=== PATIENT | female | born 1960 | race Caucasian/White ===

== ENCOUNTER 2019-01-14 10:48 | Inpatient (IN) | payer MEDICAID ==
[2019-01-14] MEDS ORDERED: Albuterol-Ipratrop 3 mg / 0.5 (3 ml) UD IH STA ×2 (11:04)
--- NOTE | 2019-01-14 11:11 | ED PDOC ---
HPI: Headache Time Seen by Provider: 01/14/19 10:55 Chief Complaint (Nursing): Headache Chief Complaint (Provider): Headache History Per: Patient History/Exam Limitations: no limitations Preceeding Symptoms: denies: Visual Disturbances, Known Migraine Symptoms Associated Symptoms: denies: Photophobia, Blurred Vision, Nausea, Vomiting, Extremity Weakness Additional Complaint(s): 58yo female with history of asthma, diabetes, hypertension, CAD, rheumatoid arthritis, comes to ER reporting head injury after she tripped and fell, hitting the back of her head. She denies any loss of consciousness, vomiting, or focal weaknesses; she does report some diffuse headache. Patient has a secondary complaints of cough with white sputum, shortness of breath and wheezing since last night. Patient reports no improvement in her symptoms with inhaler or nebulizer. Also denies any fever, chills, or chest pain. No additional complaints. PMD: Kyra Palafox Past Medical History Reviewed: Historical Data, Nursing Documentation, Vital Signs Vital Signs: Last Vital Signs Temp 98.2 F 01/14/19 11:00 Pulse 108 H 01/14/19 11:00 Resp 16 01/14/19 11:00 BP 143/80 01/14/19 11:00 Pulse Ox 95 01/14/19 11:00 - Medical History PMH: Arthritis, Asthma, CAD, Diabetes, HTN - Surgical History Surgical History: No Surg Hx - Family History Family History: States: No Known Family Hx - Allergies Allergies/Adverse Reactions: Allergies Allergy/AdvReac Type Severity Reaction Status Date / Time No Known Allergies Allergy Verified 01/14/19 11:03 Review of Systems ROS Statement: Except As Marked, All Systems Reviewed And Found Negative Constitutional: Negative for: Fever, Chills Cardiovascular: Negative for: Chest Pain Respiratory: Positive for: Cough, Shortness of Breath, Sputum (white), Wheezing Gastrointestinal: Negative for: Nausea, Vomiting Neurological: Positive for: Headache. Negative for: Weakness, Numbness, Dizziness Physical Exam - Reviewed Nursing Documentation Reviewed: Yes Vital Signs Reviewed: Yes - Physical Exam Appears: Positive for: Non-toxic, No Acute Distress Head Exam: Positive for: ATRAUMATIC, NORMAL INSPECTION, NORMOCEPHALIC Skin: Positive for: Normal Color Eye Exam: Positive for: Normal appearance, EOMI, PERRL ENT: Negative for: Pharyngeal Erythema Neck: Positive for: Normal, Supple Cardiovascular/Chest: Positive for: Regular Rate, Rhythm. Negative for: Tachycardia Respiratory: Positive for: Rhonchi, Wheezing (expiratory), Respiratory Distress (mild) Gastrointestinal/Abdominal: Positive for: Normal Exam, Soft Back: Positive for: Normal Inspection Extremity: Positive for: Normal ROM. Negative for: Pedal Edema Neurological/Psych: Positive for: Awake, Alert, Oriented (x 3). Negative for: Motor/Sensory Deficits - Laboratory Results Result Diagrams: 01/14/19 11:49 01/14/19 11:49 - ECG O2 Sat by Pulse Oximetry: 95 (RA) Pulse Ox Interpretation: Normal Medical Decision Making Medical Decision Makinyo with head injury, asthma exacerbation Plan: -- CT head -- CXR -- Solumedrol 125mg IVP -- Duoneb 3ml INH x2 Scribe Attestation: Documented by Breonna Roth acting as a scribe for Kale Wagner MD Provider Scribe Attestation: All medical record entries made by the Scribe were at my direction and personall y dictated by me. I have reviewed the chart and agree that the record accurately reflects my personal performance of the history, physical exam, medical decision making, and the department course for this patient. I have also personally directed, reviewed, and agree with the discharge instructions and disposition. Disposition - Clinical Impression Clinical Impression: CHF (congestive heart failure), Asthma - Patient ED Disposition Is Patient to be Admitted: Yes - Disposition Disposition Time: 12:32 Condition: FAIR Forms: ActiveO ([place]) - Pt Status Changed To: Hospital Disposition Of: Observation - POA Present On Arrival: None
[2019-01-14] MEDS ORDERED: Albuterol-Ipratrop 3 mg / 0.5 (3 ml) UD ONE (11:55)
[2019-01-14 12:04] LABS: BASO # 0.1 K/uL (0.0-0.2); EOS # 0.2 K/uL (0.0-0.7); EOS % 1.9 % (0.0-4.0); LYMPH # 1.6 K/uL (1.0-4.3); LYMPH % 19.7 % (20.0-40.0); MEAN CELL VOLUME 90.6 fl (81.0-99.0); MEAN CORPUSCULAR HEMOGLOBIN 29.4 pg (27.0-31.0); MEAN CORPUSCULAR HGB CONC 32.4 g/dL (33.0-37.0); MEAN PLATELET VOLUME 8.4 fl (7.2-11.7); MONO # 0.8 K/uL (0.0-0.8); MONO % 9.6 % (0.0-10.0); NEUT # 5.6 K/uL (1.8-7.0); NEUT % 67.8 % (50.0-75.0); NRBC % 0.1 % (0.0-0.0); RBC 4.09 Mil/uL (3.80-5.20); RED CELL DISTRIBUTION WIDTH 16.5 % (11.5-14.5); WHITE BLOOD COUNT 8.3 K/uL (4.8-10.8)
[2019-01-14 12:15] LABS: ALB/GLOB RATIO 1.6 (1.0-2.1); ALBUMIN 4.6 g/dL (3.5-5.0); ALT/SGPT 80 U/L (9-52); AST/SGOT 58 U/L (14-36); BLOOD UREA NITROGEN 12 mg/dl (7-17); CALCIUM 9.6 mg/dL (8.4-10.2); GFR NON-AFRICAN AMERICAN > 60
--- NOTE | 2019-01-14 12:23 | RAD ---
Date of service: 01/14/2019 HISTORY: Shortness of breath COMPARISON: No prior. TECHNIQUE: Chest PA and lateral FINDINGS: LINES AND TUBES: None. LUNG AND PLEURA: There are low lung volumes. There is severe pulmonary venous congestion and presumable alveolar pulmonary edema in the lungs. Suspect small effusions. No pneumothorax. HEART AND MEDIASTINUM: Mild cardiomegaly and prominent central vasculature. No aortic atherosclerotic calcifications present. The hilar and mediastinal contours are within normal limits. SKELETAL STRUCTURES: The bony structures are within normal limits for the patient's age. VISUALIZED UPPER ABDOMEN: Normal. OTHER FINDINGS: None. IMPRESSION: Findings are most compatible with congestive heart failure with presumable developing pulmonary edema.
--- NOTE | 2019-01-14 12:36 | CT ---
Date of service: 01/14/2019 PROCEDURE: CT HEAD WITHOUT CONTRAST. HISTORY: r/o bleed COMPARISON: None available. TECHNIQUE: Axial computed tomography images were obtained through the head/brain without intravenous contrast. Radiation dose: Total exam DLP = 840.4 mGy-cm. This CT exam was performed using one or more of the following dose reduction techniques: Automated exposure control, adjustment of the mA and/or kV according to patient size, and/or use of iterative reconstruction technique. FINDINGS: HEMORRHAGE: No intracranial hemorrhage. BRAIN: Womack-white matter differentiation is preserved. There is no mass, mass effect or abnormal extra-axial fluid collection. There is no territorial infarction. The midline sagittal structures are normal. VENTRICLES: The ventricles are normal in size, shape and configuration. CALVARIUM: There is no calvarial fracture. There is a moderate size right parietal scalp hematoma. PARANASAL SINUSES: Predominantly clear. MASTOID AIR CELLS: Predominantly clear. OTHER FINDINGS: None. IMPRESSION: No acute intracranial abnormality. Moderate size right parietal scalp hematoma.
--- NOTE | 2019-01-14 15:32 | CARD ---
APPROVED REPORT Date of service: 01/14/2019 EKG Measurement Heart [id number] <Conclusion> Normal sinus rhythm Non specific T-wave changes Prolonged QT Abnormal ECG
--- NOTE | 2019-01-14 16:51 | CP.PCM.CON ---
Past Patient History - Past Medical History & Family History Past Medical History?: Yes - Past Social History Smoking Status: Never Smoked - CARDIAC Hx Cardiac Disorders: Yes Hx Hypertension: Yes - PULMONARY Hx Respiratory Disorders: Yes Hx Asthma: Yes - NEUROLOGICAL Hx Neurological Disorder: No - HEENT Hx HEENT Problems: No - RENAL Hx Chronic Kidney Disease: No - ENDOCRINE/METABOLIC Hx Endocrine Disorders: Yes Hx Diabetes Mellitus Type 2: Yes - HEMATOLOGICAL/ONCOLOGICAL Hx Blood Disorders: No - INTEGUMENTARY Hx Dermatological Problems: No - MUSCULOSKELETAL/RHEUMATOLOGICAL Hx Musculoskeletal Disorders: Yes Hx Arthritis: Yes Hx Back Pain: Yes Hx Falls: Yes - GASTROINTESTINAL Hx Gastrointestinal Disorders: No - GENITOURINARY/GYNECOLOGICAL Hx Genitourinary Disorders: No - PSYCHIATRIC Hx Psychophysiologic Disorder: No Hx Substance Use: No - SURGICAL HISTORY Hx Surgeries: Yes Other/Comment: Two hip surgeries, 3 c-sections, spine surgery in lumbar - ANESTHESIA Hx Anesthesia: No Hx Anesthesia Reactions: No Meds Allergies/Adverse Reactions: Allergies Allergy/AdvReac Type Severity Reaction Status Date / Time No Known Allergies Allergy Verified 01/14/19 11:03 - Medications Medications: Current Medications Acetaminophen (Tylenol 325mg Tab) 650 mg PO Q6 PRN PRN Reason: Headache Albuterol/Ipratropium (Duoneb 3 Mg/0.5 Mg (3 Ml) Ud) 3 ml INH RQID [facility] Aspirin (Ecotrin) 81 mg PO DAILY [facility] Atorvastatin Calcium (Lipitor) 20 mg PO HS [facility] Fluticasone Propionate (Flonase) 2 spr BRIDGETT HS [facility] Folic Acid (Folic Acid) 1 mg PO DAILY [facility] Furosemide (Lasix) 40 mg IV DAILY [facility] Furosemide (Lasix) 40 mg IVP ONCE ONE Stop: 01/14/19 16:47 Gabapentin (Neurontin) 300 mg PO Q8 [facility] Insulin Detemir (Levemir) 45 units SC HS [facility] Losartan Potassium (Cozaar) 100 mg PO DAILY [facility] Methylprednisolone (Solu-Medrol) 40 mg IVP Q12 [facility] Montelukast Sodium (Singulair) 10 mg PO HS [facility] Pantoprazole Sodium (Protonix Ec Tab) 40 mg PO DAILY [facility] Results - Vital Signs Recent Vital Signs: Last Vital Signs Temp 98.1 F 01/14/19 14:23 Pulse 100 H 01/14/19 14:23 Resp 18 01/14/19 16:03 BP 117/66 01/14/19 14:23 Pulse Ox 95 01/14/19 16:03 - Labs Result Diagrams: 01/14/19 11:49 01/14/19 11:49 Labs: Laboratory Results - last 24 hr 01/14/19 01/14/19 01/14/19 11:49 11:49 12:46 WBC 8.3 RBC 4.09 Hgb 12.0 Hct 37.0 MCV 90.6 MCH 29.4 MCHC 32.4 L RDW 16.5 H Plt Count 236 MPV 8.4 Neut % (Auto) 67.8 Lymph % (Auto) 19.7 L [place] % (Auto) 9.6 Eos % (Auto) 1.9 Baso % (Auto) 1.0 Neut # (Auto) 5.6 Lymph # (Auto) 1.6 [place] # (Auto) 0.8 Eos # (Auto) 0.2 Baso # (Auto) 0.1 Sodium 139 Potassium 4.4 Chloride 106 Carbon Dioxide 23 Anion Gap 14 BUN 12 Creatinine 0.7 Est GFR ( Amer) > 60 Est GFR (Non-Af Amer) > 60 Random Glucose 104 Calcium 9.6 Total Bilirubin 0.4 AST 58 H ALT 80 H Alkaline Phosphatase 82 NT-Pro-B Natriuret Pep 568 Total Protein 7.4 Albumin 4.6 Globulin 2.8 Albumin/Globulin Ratio 1.6
[2019-01-14] MEDS ORDERED: Influenza Vaccine 60 mcg/0.5 mL SYR (4YR UP) IM ONE (17:15)
[2019-01-14] MEDS ORDERED: Pneumococcal 23-Valent Vaccine IM ONE (17:15)
[2019-01-14] MEDS: Albuterol-Ipratrop 3 mg / 0.5 (3 ml) UD INH SCH ×2 (17:26→19:10)
[2019-01-14] MEDS: MethylPREDNISolone 40 mg Vial IVP SCH (21:29)
[2019-01-14] MEDS: Insulin Detemir 100 Units/ml Inj SC SCH (21:30)
[2019-01-14] MEDS: Insulin Regular 100 units/ml SC SCH (22:44)
[2019-01-15 05:39] LABS: BLOOD UREA NITROGEN 15 mg/dl (7-17); CALCIUM 9.9 mg/dL (8.4-10.2); GFR NON-AFRICAN AMERICAN > 60
[2019-01-15] MEDS: Albuterol-Ipratrop 3 mg / 0.5 (3 ml) UD INH SCH ×4 (07:55→19:21)
[2019-01-15] MEDS: Insulin Regular 100 units/ml SC SCH ×4 (08:16→22:02)
[2019-01-15] MEDS: MethylPREDNISolone 40 mg Vial IVP SCH ×2 (08:16→21:59)
[2019-01-15] MEDS: Pantoprazole 40 mg EC Tab PO SCH (08:16)
[2019-01-15 09:39] LABS: ALB/GLOB RATIO 1.6 (1.0-2.1); ALBUMIN 4.7 g/dL (3.5-5.0); BILIRUBIN,DIRECT 0.3 mg/ml (0.0-0.4)
[2019-01-15] MEDS: guaiFENesin DM 200 mg-20 mg/10 ml UD PO SCH ×3 (11:14→21:57)
--- NOTE | 2019-01-15 12:58 | CARD ---
APPROVED REPORT Date of service: 01/15/2019 EXAM: Two-dimensional and M-mode echocardiogram with Doppler and color Doppler. Other Information Quality : GoodRhythm : NSR INDICATION Congestive Heart Failure 2D DIMENSIONS IVSd1.04 (0.7-1.1cm)LVDd5.54 (3.9-5.9cm) LVOT Diameter1.92 (1.8-2.4cm)PWd0.93 (0.7-1.1cm) IVSs0.91 (0.8-1.2cm)LVDs4.42 (2.5-4.0cm) FS (%) 20.3 %PWs1.39 (0.8-1.2cm) M-Mode DIMENSIONS Left Atrium (MM)4.41 (2.5-4.0cm)IVSd1.12 (0.7-1.1cm) Aortic Root2.56 (2.2-3.7cm)LVDd5.53 (4.0-5.6cm) Aortic Cusp Exc.1.59 (1.5-2.0cm)PWd0.91 (0.7-1.1cm) IVSs1.29 cmFS (%) 26 % LVDs4.09 (2.0-3.8cm)PWs1.38 cm Aortic Valve AoV Peak Ckyjzjnq640.8cm/sAoV VTI31.4cmAO Peak GR.8mmHg LVOT Peak Qvlstyeg973.1cm/sLVOT VTI23.61cmAO Mean GR.5mmHg RANDY (VMAX)1.58cj1GCH (VTI)1.23cm2 Mitral Valve E/A ratio0.0 TDI E/Lateral E'0.0E/Medial E'0.0 Tricuspid Valve TR Peak Ucmkwosr860bn/sRAP [id number] Peak Gr.42mmHg [id number] LEFT VENTRICLE The left ventricle is normal size. There is normal left ventricular wall thickness. The systolic function is mildly to moderately impaired. The estimated ejection fraction is 40-45% There is mild global hypokinesis of the left ventricle. Transmitral Doppler flow pattern is Grade II-pseudonormal filling dynamics. No left ventricle thrombus noted on this study. There is no ventricular septal defect visualized. There is no left ventricular aneurysm. There is no mass noted in the left ventricle. RIGHT VENTRICLE The right ventricle is normal size. There is normal right ventricular wall thickness. The right ventricular systolic function is normal. ATRIA The left atrium is moderately dilated. The right atrium size is normal. The interatrial septum is intact with no evidence for an atrial septal defect. AORTIC VALVE The aortic valve is normal in structure. No aortic regurgitation is present. There is no aortic valvular stenosis. There is no aortic valvular vegetation. MITRAL VALVE The mitral valve is normal in structure. There is no evidence of mitral valve prolapse. There is no mitral valve stenosis. There is mild mitral valve regurgitation noted. TRICUSPID VALVE The tricuspid valve is normal in structure. There is mild tricuspid valve regurgitation noted. RVSP is calculated at 46 mm Hg. There is no tricuspid valve prolapse or vegetation. There is no tricuspid valve stenosis. PULMONIC VALVE The pulmonary valve is normal in structure. There is mild pulmonic valvular regurgitation. There is no pulmonic valvular stenosis. GREAT VESSELS The aortic root is normal in size. The ascending aorta is normal in size. The pulmonary artery is normal. The IVC is not visualized. PERICARDIAL EFFUSION There is no pericardial effusion. There is no pleural effusion. <Conclusion> The systolic function is mildly to moderately impaired. The estimated ejection fraction is 40-45%. There is mild global hypokinesis of the left ventricle. Transmitral Doppler flow pattern is Grade II-pseudonormal filling dynamics. The left atrium is moderately dilated. There is mild mitral valve regurgitation noted. There is mild tricuspid valve regurgitation noted. RVSP is calculated at 46 mm Hg. The IVC is not well visualized.
--- NOTE | 2019-01-15 18:45 | CP.PCM.PN ---
Subjective - Date & Time of Evaluation Date of Evaluation: 01/15/19 Time of Evaluation: 18:45 - Subjective Subjective: pt with less sob today after lasix restarted. Objective - Vital Signs/Intake and Output Vital Signs (last 24 hours): Temp Pulse Resp BP Pulse Ox 98.3 F 104 H 21 118/67 97 01/15/19 16:11 01/15/19 16:11 01/15/19 16:11 01/15/19 16:11 01/15/19 16:11 - Medications Medications: Current Medications Acetaminophen (Tylenol 325mg Tab) 650 mg PO Q6 PRN PRN Reason: Headache Last Admin: 01/14/19 17:04 Dose: 650 mg Albuterol/Ipratropium (Duoneb 3 Mg/0.5 Mg (3 Ml) Ud) 3 ml INH RQID [facility] Last Admin: 01/15/19 15:31 Dose: 3 ml Aspirin (Ecotrin) 81 mg PO DAILY [facility] Last Admin: 01/15/19 08:16 Dose: 81 mg Atorvastatin Calcium (Lipitor) 20 mg PO HS [facility] Last Admin: 01/14/19 21:29 Dose: 20 mg Fluticasone Propionate (Flonase) 2 spr BRIDGETT HS [facility] Last Admin: 01/14/19 21:27 Dose: 2 spr Folic Acid (Folic Acid) 1 mg PO DAILY [facility] Last Admin: 01/15/19 08:15 Dose: 1 mg Furosemide (Lasix) 40 mg IV DAILY [facility] Last Admin: 01/15/19 08:17 Dose: 40 mg Gabapentin (Neurontin) 300 mg PO Q8 [facility] Last Admin: 01/15/19 16:27 Dose: 300 mg Guaifenesin/Dextromethorphan (Robitussin Dm) 10 ml PO Q6 [facility] Last Admin: 01/15/19 16:27 Dose: 10 ml Insulin Detemir (Levemir) 45 units SC HS [facility] Last Admin: 01/14/19 21:30 Dose: 45 u Insulin Human Regular (Humulin R) 0 units SC ACCU-CHECK [facility]; Protocol Last Admin: 01/15/19 16:25 Dose: 10 units Losartan Potassium (Cozaar) 100 mg PO DAILY [facility] Last Admin: 01/15/19 08:15 Dose: 100 mg Methylprednisolone (Solu-Medrol) 40 mg IVP Q12 [facility] Last Admin: 01/15/19 08:16 Dose: 40 mg Montelukast Sodium (Singulair) 10 mg PO HS [facility] Last Admin: 01/14/19 21:28 Dose: 10 mg Pantoprazole Sodium (Protonix Ec Tab) 40 mg PO DAILY [facility] Last Admin: 01/15/19 08:16 Dose: 40 mg - Labs Labs: 01/14/19 11:49 01/15/19 05:00 Assessment and Plan (1) Asthma Status: Acute (2) CHF (congestive heart failure) Status: Acute (3) Dyslipidemia Status: Acute (4) Fall Status: Acute (5) HTN (hypertension) Status: Acute (6) Head trauma Status: Acute - Assessment and Plan (Free Text) Plan: pt improved on lasix 40 daily.
[2019-01-15] MEDS: Insulin Detemir 100 Units/ml Inj SC SCH (22:03)
--- NOTE | 2019-01-16 01:03 | CP.PCM.PN ---
Subjective - Date & Time of Evaluation Date of Evaluation: 01/15/19 Time of Evaluation: 18:00 - Subjective Subjective: pt with less sob today after lasix restarted. Objective - Vital Signs/Intake and Output Vital Signs (last 24 hours): Temp Pulse Resp BP Pulse Ox 98.4 F 111 H 18 112/66 98 01/16/19 00:25 01/16/19 00:25 01/16/19 00:25 01/16/19 00:25 01/16/19 00:25 - Medications Medications: Current Medications Acetaminophen (Tylenol 325mg Tab) 650 mg PO Q6 PRN PRN Reason: Headache Last Admin: 01/14/19 17:04 Dose: 650 mg Albuterol/Ipratropium (Duoneb 3 Mg/0.5 Mg (3 Ml) Ud) 3 ml INH RQID [facility] Last Admin: 01/15/19 19:21 Dose: 3 ml Aspirin (Ecotrin) 81 mg PO DAILY [facility] Last Admin: 01/15/19 08:16 Dose: 81 mg Atorvastatin Calcium (Lipitor) 20 mg PO HS [facility] Last Admin: 01/15/19 21:57 Dose: 20 mg Fluticasone Propionate (Flonase) 2 spr BRIDGETT HS [facility] Last Admin: 01/15/19 21:55 Dose: 2 spr Folic Acid (Folic Acid) 1 mg PO DAILY [facility] Last Admin: 01/15/19 08:15 Dose: 1 mg Furosemide (Lasix) 40 mg IV DAILY [facility] Last Admin: 01/15/19 08:17 Dose: 40 mg Gabapentin (Neurontin) 300 mg PO Q8 [facility] Last Admin: 01/16/19 00:35 Dose: 300 mg Guaifenesin/Dextromethorphan (Robitussin Dm) 10 ml PO Q6 [facility] Last Admin: 01/15/19 21:57 Dose: 10 ml Insulin Detemir (Levemir) 45 units SC HS [facility] Last Admin: 01/15/19 22:03 Dose: 45 u Insulin Human Regular (Humulin R) 0 units SC ACCU-CHECK [facility]; Protocol Last Admin: 01/15/19 22:02 Dose: Not Given Losartan Potassium (Cozaar) 100 mg PO DAILY [facility] Last Admin: 01/15/19 08:15 Dose: 100 mg Methylprednisolone (Solu-Medrol) 40 mg IVP Q12 [facility] Last Admin: 01/15/19 21:59 Dose: 40 mg Montelukast Sodium (Singulair) 10 mg PO HS [facility] Last Admin: 01/15/19 21:57 Dose: 10 mg Pantoprazole Sodium (Protonix Ec Tab) 40 mg PO DAILY [facility] Last Admin: 01/15/19 08:16 Dose: 40 mg - Labs Labs: 01/14/19 11:49 01/15/19 05:00 Assessment and Plan (1) Fall Status: Acute (2) Head trauma Status: Acute (3) HTN (hypertension) Status: Acute (4) Dyslipidemia Status: Acute (5) Asthma Status: Acute (6) CHF (congestive heart failure) Status: Acute - Assessment and Plan (Free Text) Plan: pt less dyspnic on lasix 40 daily.
--- NOTE | 2019-01-16 01:25 | CP.PCM.HP ---
History of Present Illness - History of Present Illness History of Present Illness: CC: Cough, SOB, wheezing. Head hematoma S/P fall. HPI: 58 y/o female with a PMH of HTN, CAD, Asthma presented to the ED after falling and hitting her head on the ground. As per pt and family, no LOC was observed. CT Head was done, which revealed a hematoma. At present she has no geo ro or motor deficits. While arriving to the ED, the pt experienced dyspnea and a persistent cough was noted. CXR revealed developing pulmonary edema, consistent with CHF. PMH: Arthritis, Asthma, CAD, Diabetes, HTN, rheumatoid arthritis PSH: None. Allergies: NKDA. Subjective Review of Systems: reviewed and no additional remarkable complaints except occasional dyspnea. Objective Vital Signs Stable Appears: Non-toxic, No Acute Distress. Head Exam: NORMAL INSPECTION, normocephalic. Mild, small, palpable hematoma palpated on posterior aspect of head. Eye Exam: Reddened right eye, PERRLA, EOMI. Respiratory Exam: Respirations easy, non-labored, mildly diminished wheezes in upper lobes. Cardiovascular Exam: +S1, +S2; RRR. GI & Abdominal Exam: Soft, non-tender, non-distended. Neurological Exam: Alert, Awake, Oriented x3. Psychiatric exam: Normal Affect, Normal Mood Skin Exam: Normal Color, Warm, Dry. Assessment/Impression/Plan: 1.) CHF -For ECHO today. -On Lasix 40 mg daily. -BP managed with Losartan. -Respiratory management: Solu-medrol + Duonebs + Robitussin; also on singulair. -Will consult with neuro for evaluation of hematoma. -Cardiology consult appreciated input. -Continue current tx. Present on Admission - Present on Admission Any Indicators Present on Admission: No Past Patient History - Past Medical History & Family History Past Medical History?: Yes - Past Social History Smoking Status: Never Smoked - CARDIAC Hx Cardiac Disorders: Yes Hx Hypertension: Yes - PULMONARY Hx Respiratory Disorders: Yes Hx Asthma: Yes - NEUROLOGICAL Hx Neurological Disorder: No - HEENT Hx HEENT Problems: No - RENAL Hx Chronic Kidney Disease: No - ENDOCRINE/METABOLIC Hx Endocrine Disorders: Yes Hx Diabetes Mellitus Type 2: Yes - HEMATOLOGICAL/ONCOLOGICAL Hx Blood Disorders: No - INTEGUMENTARY Hx Dermatological Problems: No - MUSCULOSKELETAL/RHEUMATOLOGICAL Hx Musculoskeletal Disorders: Yes Hx Arthritis: Yes Hx Back Pain: Yes Hx Falls: Yes - GASTROINTESTINAL Hx Gastrointestinal Disorders: No - GENITOURINARY/GYNECOLOGICAL Hx Genitourinary Disorders: No - PSYCHIATRIC Hx Psychophysiologic Disorder: No Hx Substance Use: No - SURGICAL HISTORY Hx Surgeries: Yes Other/Comment: Two hip surgeries, 3 c-sections, spine surgery in lumbar - ANESTHESIA Hx Anesthesia: No Hx Anesthesia Reactions: No Meds Allergies/Adverse Reactions: Allergies Allergy/AdvReac Type Severity Reaction Status Date / Time No Known Allergies Allergy Verified 01/14/19 11:03 Results - Vital Signs Recent Vital Signs: Last Vital Signs Temp 98.4 F 01/16/19 00:25 Pulse 111 H 01/16/19 00:25 Resp 18 01/16/19 00:25 BP 112/66 01/16/19 00:25 Pulse Ox 98 01/16/19 00:25 - Labs Result Diagrams: 01/14/19 11:49 01/15/19 05:00 Labs: Laboratory Results - last 24 hr 01/15/19 01/15/19 01/15/19 05:00 05:12 09:15 Sodium 139 Potassium 4.4 Chloride 100 Carbon Dioxide 26 Anion Gap 17 BUN 15 Creatinine 0.7 Est GFR ( Amer) > 60 Est GFR (Non-Af Amer) > 60 POC Glucose (mg/dL) 296 H Random Glucose 308 H Hemoglobin A1c 6.6 H Calcium 9.9 Total Bilirubin Direct Bilirubin AST ALT Alkaline Phosphatase Total Protein Albumin Globulin Albumin/Globulin Ratio 01/15/19 01/15/19 01/15/19 09:15 11:05 15:47 Sodium Potassium Chloride Carbon Dioxide Anion Gap BUN Creatinine Est GFR ( Amer) Est GFR (Non-Af Amer) POC Glucose (mg/dL) 383 H 455 H* Random Glucose Hemoglobin A1c Calcium Total Bilirubin 0.4 Direct Bilirubin 0.3 AST 63 H ALT 72 H Alkaline Phosphatase 80 Total Protein 7.5 Albumin 4.7 Globulin 2.9 Albumin/Globulin Ratio 1.6 01/15/19 21:41 Sodium Potassium Chloride Carbon Dioxide Anion Gap BUN Creatinine Est GFR ( Amer) Est GFR (Non-Af Amer) POC Glucose (mg/dL) 331 H Random Glucose Hemoglobin A1c Calcium Total Bilirubin Direct Bilirubin AST ALT Alkaline Phosphatase Total Protein Albumin Globulin Albumin/Globulin Ratio Assessment & Plan (1) CHF (congestive heart failure) Status: Acute (2) Fall Status: Acute (3) Head trauma Status: Acute
[2019-01-16] MEDS: guaiFENesin DM 200 mg-20 mg/10 ml UD PO SCH ×4 (03:03→21:50)
[2019-01-16 06:51] LABS: BASO % 0.1 % (0.0-2.0); HEMOGLOBIN 11.3 g/dL (12.0-16.0); LYMPH # 0.8 K/uL (1.0-4.3); LYMPH % 5.6 % (20.0-40.0); MEAN CORPUSCULAR HEMOGLOBIN 29.1 pg (27.0-31.0); MEAN CORPUSCULAR HGB CONC 31.4 g/dL (33.0-37.0); MEAN PLATELET VOLUME 9.2 fl (7.2-11.7); MONO # 0.4 K/uL (0.0-0.8); MONO % 2.9 % (0.0-10.0); NEUT # 12.9 K/uL (1.8-7.0); NEUT % 91.4 % (50.0-75.0); PLATELET COUNT 230 K/uL (130-400)
[2019-01-16] MEDS: Insulin Regular 100 units/ml SC SCH (06:51)
[2019-01-16 07:04] LABS: B-TYPE NATRIURETIC PEPTIDE 496 pg/ml (0-900)
[2019-01-16 07:06] LABS: MEAN CELL VOLUME 92.6 fl (81.0-99.0); WHITE BLOOD COUNT 14.1 K/uL (4.8-10.8)
[2019-01-16 07:09] LABS: ALB/GLOB RATIO 1.7 (1.0-2.1); ALBUMIN 4.5 g/dL (3.5-5.0); ALT/SGPT 66 U/L (9-52); AST/SGOT 41 U/L (14-36); BLOOD UREA NITROGEN 23 mg/dl (7-17); CALCIUM 9.1 mg/dL (8.4-10.2); GFR NON-AFRICAN AMERICAN > 60
[2019-01-16] MEDS: Albuterol-Ipratrop 3 mg / 0.5 (3 ml) UD INH SCH ×4 (08:03→19:29)
[2019-01-16] MEDS: MethylPREDNISolone 40 mg Vial IVP SCH ×2 (09:34→21:53)
[2019-01-16] MEDS: Pantoprazole 40 mg EC Tab PO SCH (09:35)
--- NOTE | 2019-01-16 11:09 | RAD ---
Date of service: 01/16/2019 PROCEDURE: CHEST RADIOGRAPH, 1 VIEW HISTORY: pulmonary congestion COMPARISON: 01/14/2019 FINDINGS: LUNGS: Clear. PLEURA: No pneumothorax or pleural fluid seen. CARDIOVASCULAR: No aortic atherosclerotic calcification present. Normal. OSSEOUS STRUCTURES: No significant abnormalities. VISUALIZED UPPER ABDOMEN: Normal. OTHER FINDINGS: None. IMPRESSION: No active disease.
--- NOTE | 2019-01-16 12:19 | CP.PCM.CON ---
History of Present Illness - History of Present Illness History of Present Illness: Initial Neurology Consultation Note Consultation requested by J Luis Cesar APN Mrs. Andres Morin is a 58 y/o female with a PMHx of CHF, asthma, HTN, NIDDM, and hypercholesterolemia who was admitted 2 days ago for CHF, asthma exac erbation, and a h/a status post mechanical fall at home. Pt states that on Sunday, she was outside with her on their way to 2 MD appts, when lost her balance and fell back while trying to sit in her rollator walker. She sustained a head injury and bump to the right side and back of her head from the fall. states that he tried catching her and also fell, injuring his left hand. Pt did not have LOC; denied dizziness, visual changes, n/d after the fall. Pt admits to on and off headaches, but states that she has had this for over 1 month and they have not changed in location, severity or quality since the fall. She was told by her software configuration specialist that she has "eye problems" and to "expect headaches." She was on her way to see the software configuration specialist on Sunday afternoon for a follow up. Pt had a non-contrast CT Head done in the ED which showed a moderate size right parietal scalp hematoma without acute intracranial abnormalities. Pt currently feels generally well and denies dizziness, visual changes, chest pain, palpitations, sob, cough, abd pain, n/v/d, fever/chills, paresthesias. Neurology has been consulted to assist in the management and care of this pt. Review of Systems - Constitutional Constitutional: As Per HPI - EENT Eyes: As Per HPI Ears: As Per HPI Nose/Mouth/Throat: As Per HPI - Breasts Breasts: As Per HPI - Cardiovascular Cardiovascular: As Per HPI - Respiratory Respiratory: As Per HPI - Gastrointestinal Gastrointestinal: As Per HPI - Genitourinary Genitourinary: As Per HPI - Musculoskeletal Musculoskeletal: As Per HPI - Integumentary Integumentary: As Per HPI - Neurological Neurological: As Per HPI - Psychiatric Psychiatric: As Per HPI - Endocrine Endocrine: As Per HPI - Hematologic/Lymphatic Hematologic: As Per HPI Past Patient History - Infectious Disease Hx of Infectious Diseases: None - Tetanus Immunizations Tetanus Immunization: Unknown - Past Medical History & Family History Past Medical History?: Yes Past Family History: Reviewed and not pertinent - Past Social History Smoking Status: Never Smoked Chewing Tobacco Use: No Cigar Use: No Occupation: unemployed Alcohol: None Drugs: Denies Home Situation {Lives}: With Family Domestic Violence: Negative - CARDIAC Hx Cardiac Disorders: Yes Hx Congestive Heart Failure: Yes Hx Hypercholesterolemia: Yes Hx Hypertension: Yes - PULMONARY Hx Respiratory Disorders: Yes Hx Asthma: Yes - NEUROLOGICAL Hx Neurological Disorder: No Other/Comment: frequent h/a but never diagnosed with migraines - HEENT Hx HEENT Problems: No - RENAL Hx Chronic Kidney Disease: No - ENDOCRINE/METABOLIC Hx Endocrine Disorders: Yes Hx Diabetes Mellitus Type 2: Yes - HEMATOLOGICAL/ONCOLOGICAL Hx Blood Disorders: No - INTEGUMENTARY Hx Dermatological Problems: No - MUSCULOSKELETAL/RHEUMATOLOGICAL Hx Musculoskeletal Disorders: Yes Hx Arthritis: Yes Hx Back Pain: Yes Hx Falls: Yes - GASTROINTESTINAL Hx Gastrointestinal Disorders: No - GENITOURINARY/GYNECOLOGICAL Hx Genitourinary Disorders: No - PSYCHIATRIC Hx Psychophysiologic Disorder: No Hx Substance Use: No - SURGICAL HISTORY Hx Surgeries: Yes Other/Comment: Two hip surgeries, 3 c-sections, spine surgery in lumbar - ANESTHESIA Hx Anesthesia: No Hx Anesthesia Reactions: No Meds Allergies/Adverse Reactions: Allergies Allergy/AdvReac Type Severity Reaction Status Date / Time No Known Allergies Allergy Verified 01/14/19 11:03 - Medications Medications: Current Medications Acetaminophen (Tylenol 325mg Tab) 650 mg PO Q6 PRN PRN Reason: Headache Last Admin: 01/16/19 03:02 Dose: 650 mg Albuterol/Ipratropium (Duoneb 3 Mg/0.5 Mg (3 Ml) Ud) 3 ml INH RQID [facility] Last Admin: 01/16/19 11:23 Dose: 3 ml Aspirin (Ecotrin) 81 mg PO DAILY [facility] Last Admin: 01/16/19 09:35 Dose: 81 mg Atorvastatin Calcium (Lipitor) 20 mg PO HS [facility] Last Admin: 01/15/19 21:57 Dose: 20 mg Fluticasone Propionate (Flonase) 2 spr BRIDGETT HS [facility] Last Admin: 01/15/19 21:55 Dose: 2 spr Folic Acid (Folic Acid) 1 mg PO DAILY [facility] Last Admin: 01/16/19 09:35 Dose: 1 mg Furosemide (Lasix) 40 mg IV DAILY [facility] Last Admin: 01/16/19 09:34 Dose: 40 mg Gabapentin (Neurontin) 300 mg PO Q8 [facility] Last Admin: 01/16/19 09:35 Dose: 300 mg Guaifenesin/Dextromethorphan (Robitussin Dm) 10 ml PO Q6 [facility] Last Admin: 01/16/19 09:33 Dose: 10 ml Azithromycin 500 mg/ Sodium (Chloride) 250 mls @ 250 mls/hr IVPB DAILY [facility]; Protocol Insulin Detemir (Levemir) 45 units SC HS [facility] Last Admin: 01/15/19 22:03 Dose: 45 u Insulin Human Lispro (Humalog) 0 units SC ACHS [facility]; Protocol Losartan Potassium (Cozaar) 100 mg PO DAILY [facility] Last Admin: 01/16/19 09:35 Dose: 100 mg Methylprednisolone (Solu-Medrol) 40 mg IVP Q12 [facility] Last Admin: 01/16/19 09:34 Dose: 40 mg Montelukast Sodium (Singulair) 10 mg PO HS [facility] Last Admin: 01/15/19 21:57 Dose: 10 mg Pantoprazole Sodium (Protonix Ec Tab) 40 mg PO DAILY [facility] Last Admin: 01/16/19 09:35 Dose: 40 mg Physical Exam - Constitutional Appears: Well, Non-toxic, No Acute Distress - Head Exam Head Exam: absent: ATRAUMATIC, NORMAL INSPECTION Additional comments: contusion on scalp noted to right parietal area, no drainage - Eye Exam Eye Exam: EOMI, Normal appearance, PERRL. absent: Nystagmus Pupil Exam: NORMAL ACCOMODATION, PERRL - ENT Exam ENT Exam: Mucous Membranes Moist, Normal Exam - Neck Exam Neck exam: Positive for: Full Rom, Normal Inspection - Respiratory Exam Respiratory Exam: NORMAL BREATHING PATTERN - Cardiovascular Exam Cardiovascular Exam: REGULAR RHYTHM - GI/Abdominal Exam GI & Abdominal Exam: Normal Bowel Sounds, Soft - Extremities Exam Extremities exam: Positive for: full ROM, normal inspection - Back Exam Back exam: FULL ROM, NORMAL INSPECTION - Neurological Exam Neurological exam: Alert, CN II-XII Intact, Normal Gait, Oriented x3, Reflexes Normal Additional comments: Speech clear, fluid No focal motor or sensory deficits. - Psychiatric Exam Psychiatric exam: Normal Affect, Normal Mood - Skin Skin Exam: Normal Color Additional comments: contusion on scalp noted to right parietal area, no drainage Results - Vital Signs Recent Vital Signs: Last Vital Signs Temp 98.7 F 01/16/19 11:51 Pulse 108 H 01/16/19 11:51 Resp 18 01/16/19 11:51 BP 127/91 H 01/16/19 11:51 Pulse Ox 95 01/16/19 11:51 - Labs Result Diagrams: 01/16/19 05:05 01/16/19 05:05 Labs: Laboratory Results - last 24 hr 01/15/19 01/15/19 01/15/19 09:15 15:47 21:41 WBC RBC Hgb Hct MCV MCH MCHC RDW Plt Count MPV Neut % (Auto) Lymph % (Auto) [place] % (Auto) Eos % (Auto) Baso % (Auto) Neut # (Auto) Lymph # (Auto) [place] # (Auto) Eos # (Auto) Baso # (Auto) Sodium Potassium Chloride Carbon Dioxide Anion Gap BUN Creatinine Est GFR ( Amer) Est GFR (Non-Af Amer) POC Glucose (mg/dL) 455 H* 331 H Random Glucose Hemoglobin A1c 6.6 H Calcium Total Bilirubin AST ALT Alkaline Phosphatase NT-Pro-B Natriuret Pep Total Protein Albumin Globulin Albumin/Globulin Ratio 01/16/19 01/16/19 01/16/19 05:05 05:05 05:32 WBC 14.1 H D RBC 3.90 Hgb 11.3 L Hct 36.1 MCV 92.6 D MCH 29.1 MCHC 31.4 L RDW 17.0 H Plt Count 230 MPV 9.2 Neut % (Auto) 91.4 H Lymph % (Auto) 5.6 L [place] % (Auto) 2.9 Eos % (Auto) 0.0 Baso % (Auto) 0.1 Neut # (Auto) 12.9 H Lymph # (Auto) 0.8 L [place] # (Auto) 0.4 Eos # (Auto) 0.0 Baso # (Auto) 0.0 Sodium 137 Potassium 5.1 H Chloride 98 Carbon Dioxide 27 Anion Gap 17 BUN 23 H Creatinine 0.8 Est GFR ( Amer) > 60 Est GFR (Non-Af Amer) > 60 POC Glucose (mg/dL) 396 H Random Glucose 427 H* D Hemoglobin A1c Calcium 9.1 Total Bilirubin 0.4 AST 41 H D ALT 66 H Alkaline Phosphatase 115 NT-Pro-B Natriuret Pep 496 Total Protein 7.1 Albumin 4.5 Globulin 2.6 Albumin/Globulin Ratio 1.7 01/16/19 10:59 WBC RBC Hgb Hct MCV MCH MCHC RDW Plt Count MPV Neut % (Auto) Lymph % (Auto) [place] % (Auto) Eos % (Auto) Baso % (Auto) Neut # (Auto) Lymph # (Auto) [place] # (Auto) Eos # (Auto) Baso # (Auto) Sodium Potassium Chloride Carbon Dioxide Anion Gap BUN Creatinine Est GFR ( Amer) Est GFR (Non-Af Amer) POC Glucose (mg/dL) 426 H* Random Glucose Hemoglobin A1c Calcium Total Bilirubin AST ALT Alkaline Phosphatase NT-Pro-B Natriuret Pep Total Protein Albumin Globulin Albumin/Globulin Ratio Assessment & Plan (1) Scalp hematoma Assessment and Plan: Imaging reviewed: -CT Head (01/14/19): No acute intracranial abnormality. Moderate size right parietal scalp hematoma. At this time there is no need to repeat a CT Head. The pt is neurologically stable and is not exhibiting any deficits. Her headaches are chronic in nature and have not changed since her fall and head injury. If the pt develops acute neurologic deficits while in the hospital, we recommend repeat imaging without contrast. I spoke with her and at length regarding post-head injury care at home and when to return to the ED. Pt may continue taking her daily ASA 81 mg as usual. I recommend that she follows up with her software configuration specialist soon. She can also f/u with neurology as outpatient if her h/a do not resolve or worsen. Please provide her with our office information for poss f/u. No further neuro recommendations. Reconsult prn. Thank you for this consultation. Angelica Salinas DNP, [employer] d/w Dr. Cooley Status: Acute - Date & Time Date: 01/16/19 Time: 12:19
[2019-01-16] MEDS: Azithromycin 500 MG in Sodium Chloride 0.9% 250 ML IVPB SCH (12:20)
[2019-01-16] MEDS: Insulin Lispro (humaLOG) 100 Units/ml Inj SC SCH ×3 (12:23→21:46)
[2019-01-16 12:47] LABS: LYMPHOCYTE 2 % (20-50); MONOCYTE 4 % (0-10); NEUTROPHIL 94 % (42-75); TOTAL CELLS COUNTED 100
[2019-01-16 12:48] LABS: PLATELET ESTIMATE NORMAL (NORMAL)
[2019-01-16 12:49] LABS: ANISOCYTOSIS SLIGHT; HYPOCHROMIC SLIGHT; OVALOCYTES SLIGHT; TEARDROP CELLS SLIGHT
--- NOTE | 2019-01-16 17:54 | CP.PCM.PN ---
Subjective - Date & Time of Evaluation Date of Evaluation: 01/16/19 Time of Evaluation: 17:54 - Subjective Subjective: FEELS BETTER. LESS DYSPNEA Objective - Vital Signs/Intake and Output Vital Signs (last 24 hours): Temp Pulse Resp BP Pulse Ox 97.9 F 99 H 22 116/73 96 01/16/19 16:22 01/16/19 16:22 01/16/19 16:22 01/16/19 16:22 01/16/19 16:22 - Medications Medications: Current Medications Acetaminophen (Tylenol 325mg Tab) 650 mg PO Q6 PRN PRN Reason: Headache Last Admin: 01/16/19 03:02 Dose: 650 mg Albuterol/Ipratropium (Duoneb 3 Mg/0.5 Mg (3 Ml) Ud) 3 ml INH RQID [facility] Last Admin: 01/16/19 15:32 Dose: 3 ml Aspirin (Ecotrin) 81 mg PO DAILY [facility] Last Admin: 01/16/19 09:35 Dose: 81 mg Atorvastatin Calcium (Lipitor) 20 mg PO HS [facility] Last Admin: 01/15/19 21:57 Dose: 20 mg Fluticasone Propionate (Flonase) 2 spr BRIDGETT HS [facility] Last Admin: 01/15/19 21:55 Dose: 2 spr Folic Acid (Folic Acid) 1 mg PO DAILY [facility] Last Admin: 01/16/19 09:35 Dose: 1 mg Furosemide (Lasix) 40 mg IV DAILY [facility] Last Admin: 01/16/19 09:34 Dose: 40 mg Gabapentin (Neurontin) 300 mg PO Q8 [facility] Last Admin: 01/16/19 16:45 Dose: 300 mg Guaifenesin/Dextromethorphan (Robitussin Dm) 10 ml PO Q6 [facility] Last Admin: 01/16/19 16:45 Dose: 10 ml Azithromycin 500 mg/ Sodium (Chloride) 250 mls @ 250 mls/hr IVPB DAILY [facility]; Protocol Last Admin: 01/16/19 12:20 Dose: 250 mls/hr Insulin Detemir (Levemir) 45 units SC HS [facility] Last Admin: 01/15/19 22:03 Dose: 45 u Insulin Human Lispro (Humalog) 0 units SC ACHS [facility]; Protocol Last Admin: 01/16/19 16:45 Dose: 10 units Losartan Potassium (Cozaar) 100 mg PO DAILY [facility] Last Admin: 01/16/19 09:35 Dose: 100 mg Methylprednisolone (Solu-Medrol) 40 mg IVP Q12 [facility] Last Admin: 01/16/19 09:34 Dose: 40 mg Montelukast Sodium (Singulair) 10 mg PO HS [facility] Last Admin: 01/15/19 21:57 Dose: 10 mg Pantoprazole Sodium (Protonix Ec Tab) 40 mg PO DAILY [facility] Last Admin: 01/16/19 09:35 Dose: 40 mg - Labs Labs: 01/16/19 05:05 01/16/19 05:05 Assessment and Plan (1) Asthma Status: Acute (2) CHF (congestive heart failure) Status: Acute (3) Dyslipidemia Status: Acute (4) Fall Status: Acute (5) HTN (hypertension) Status: Acute (6) Head trauma Status: Acute - Assessment and Plan (Free Text) Plan: CONTINUE CURRENT CARE FROM CARDIAC STANDPOINT. RESUME ANY PROPR ANTIPLT THERAPY NEUROLOGY HAS APPROVED.
[2019-01-16] MEDS: Insulin Detemir 100 Units/ml Inj SC SCH (21:45)
[2019-01-17] MEDS: guaiFENesin DM 200 mg-20 mg/10 ml UD PO SCH ×4 (04:32→21:23)
[2019-01-17 05:28] LABS: MEAN CELL VOLUME 91.4 fl (81.0-99.0); MEAN CORPUSCULAR HEMOGLOBIN 29.3 pg (27.0-31.0); RBC 3.76 Mil/uL (3.80-5.20); RED CELL DISTRIBUTION WIDTH 16.5 % (11.5-14.5); WHITE BLOOD COUNT 11.9 K/uL (4.8-10.8)
[2019-01-17] MEDS: Insulin Lispro (humaLOG) 100 Units/ml Inj SC SCH ×4 (06:41→21:27)
[2019-01-17] MEDS: Albuterol-Ipratrop 3 mg / 0.5 (3 ml) UD INH SCH ×4 (07:59→19:14)
[2019-01-17] MEDS: MethylPREDNISolone 40 mg Vial IVP SCH ×2 (08:31→21:29)
[2019-01-17] MEDS: Pantoprazole 40 mg EC Tab PO SCH (08:32)
[2019-01-17] MEDS: Azithromycin 500 MG in Sodium Chloride 0.9% 250 ML IVPB SCH (08:33)
--- NOTE | 2019-01-17 14:14 | CP.PCM.PN ---
Subjective - Date & Time of Evaluation Date of Evaluation: 01/16/19 Time of Evaluation: 10:30 - Subjective Subjective: patient seen and examined at bedside. Interim events noted still with SOB, especially without o2 supplementation and on exertion denies cp/sob/fever/chills. available diagnostic data reviewed Review of Systems All systems: reviewed and no additional remarkable complaints except mentioned above Objective Vital Signs Stable - Constitutional Appears: Non-toxic, No Acute Distress Head Exam: NORMAL INSPECTION Eye Exam: Normal appearance Respiratory Exam: NORMAL BREATHING PATTERN, on O2 supplementation, wheezing noted bilaterally Cardiovascular Exam: +S1, +S2 GI & Abdominal Exam: Soft Neurological Exam: Alert, Awake Psychiatric exam: Normal Affect, Normal Mood Skin Exam: Normal Color, Warm Assessment and Plan monitor vitals monitor labs Cont meds Cont tx consultants appreciated input IV solumedrol duonebs rest of plan as ordered Assessment and Plan (1) Asthma Status: Acute (2) CHF (congestive heart failure) Status: Acute
--- NOTE | 2019-01-17 14:59 | PQF ---
PROVIDER RESPONSE TEXT: Chronic diastolic chf REVIEWER QUERY TEXT: CHF Acuity and Type Congestive Heart Failure is documented in the Medical Record. Please document the 1) type and 2) acui ty (includes probable or suspected) Such as: 1) Type: -- Systolic -- Diastolic -- Combined -- Other, please specify 2) Acuity: -- Acute -- Chronic -- Acute on chronic -- Other, please specify Also please document the underlying cause of the CHF (includes probable or suspected) The patient's Clinical Indicators include: Admitted s/p fall with scalp hematoma. Secondary c/o productive cough, sob and wheezing. CXR: C/W CHF with developing pulmonary edema. Pro BNP 568 ECHO: The systolic function is mildly to moderately impaired.The estimated ejection fraction is 40-45 %.There is mild global hypokinesis of the left ventricle. Transmitral Doppler flow pattern is Grade II-pseudonormal filling dynamics.The left atrium is moderately dilated. There is mild mitral valve regurgitation noted.There is mild tricuspid valve regurgitation noted. RVSP is calculated at 46 mm Hg. The IVC is not well vis ualized. Rx: IV Lasix Query created by: Arina Chiu on 01/17/2019 7:40 AM Electronically signed by: Amy PATRICK 01/17/2019 2:57 PM
--- NOTE | 2019-01-17 15:16 | CP.PCM.PN ---
Subjective - Date & Time of Evaluation Date of Evaluation: 01/17/19 Time of Evaluation: 15:15 Objective - Vital Signs/Intake and Output Vital Signs (last 24 hours): Temp Pulse Resp BP Pulse Ox 98.7 F 95 H 18 118/74 97 01/17/19 12:00 01/17/19 12:00 01/17/19 12:00 01/17/19 12:00 01/17/19 12:00 - Medications Medications: Current Medications Acetaminophen (Tylenol 325mg Tab) 650 mg PO Q6 PRN PRN Reason: Headache Last Admin: 01/16/19 03:02 Dose: 650 mg Albuterol/Ipratropium (Duoneb 3 Mg/0.5 Mg (3 Ml) Ud) 3 ml INH RQID [facility] Last Admin: 01/17/19 11:43 Dose: 3 ml Aspirin (Ecotrin) 81 mg PO DAILY [facility] Last Admin: 01/17/19 08:32 Dose: 81 mg Atorvastatin Calcium (Lipitor) 20 mg PO HS [facility] Last Admin: 01/17/19 00:12 Dose: 20 mg Fluticasone Propionate (Flonase) 2 spr BRIDGETT HS [facility] Last Admin: 01/16/19 21:49 Dose: 2 spr Folic Acid (Folic Acid) 1 mg PO DAILY [facility] Last Admin: 01/17/19 08:31 Dose: 1 mg Furosemide (Lasix) 40 mg IV DAILY [facility] Last Admin: 01/17/19 08:31 Dose: 40 mg Gabapentin (Neurontin) 300 mg PO Q8 [facility] Last Admin: 01/17/19 08:31 Dose: 300 mg Guaifenesin/Dextromethorphan (Robitussin Dm) 10 ml PO Q6 [facility] Last Admin: 01/17/19 10:19 Dose: 10 ml Azithromycin 500 mg/ Sodium (Chloride) 250 mls @ 250 mls/hr IVPB DAILY [facility]; Protocol Last Admin: 01/17/19 08:33 Dose: 250 mls/hr Ibuprofen (Motrin Tab) 600 mg PO Q8 PRN PRN Reason: Headache Last Admin: 01/17/19 10:42 Dose: 600 mg Insulin Detemir (Levemir) 55 units SC HS [facility] Insulin Human Lispro (Humalog) 0 units SC ACHS [facility]; Protocol Last Admin: 01/17/19 11:16 Dose: 12 units Losartan Potassium (Cozaar) 100 mg PO DAILY [facility] Last Admin: 01/17/19 08:32 Dose: 100 mg Methylprednisolone (Solu-Medrol) 40 mg IVP Q12 [facility] Last Admin: 01/17/19 08:31 Dose: 40 mg Montelukast Sodium (Singulair) 10 mg PO HS [facility] Last Admin: 01/16/19 21:50 Dose: 10 mg Pantoprazole Sodium (Protonix Ec Tab) 40 mg PO DAILY [facility] Last Admin: 01/17/19 08:32 Dose: 40 mg - Labs Labs: 01/17/19 04:15 01/16/19 05:05 Assessment and Plan (1) Asthma Status: Acute (2) CHF (congestive heart failure) Status: Acute (3) Dyslipidemia Status: Acute (4) Fall Status: Acute (5) HTN (hypertension) Status: Acute (6) Head trauma Status: Acute
[2019-01-17] MEDS ORDERED: Insulin Detemir 100 Units/ml Inj SC SCH (22:00)
[2019-01-18] MEDS: guaiFENesin DM 200 mg-20 mg/10 ml UD PO SCH ×4 (04:04→21:57)
[2019-01-18] MEDS: Albuterol-Ipratrop 3 mg / 0.5 (3 ml) UD INH SCH ×4 (07:20→19:21)
[2019-01-18] MEDS: Insulin Lispro (humaLOG) 100 Units/ml Inj SC SCH ×4 (09:28→21:58)
[2019-01-18] MEDS: Pantoprazole 40 mg EC Tab PO SCH (09:32)
[2019-01-18] MEDS: MethylPREDNISolone 40 mg Vial IVP SCH (09:32)
[2019-01-18] MEDS: Azithromycin 500 MG in Sodium Chloride 0.9% 250 ML IVPB SCH (09:51)
--- NOTE | 2019-01-18 12:25 | CP.PCM.PN ---
Subjective - Date & Time of Evaluation Date of Evaluation: 01/18/19 Time of Evaluation: 09:00 - Subjective Subjective: patient seen and examined at bedside. Interim events noted still with SOB, especially without o2 supplementation and on exertion also cough denies cp/sob/fever/chills. available diagnostic data reviewed Review of Systems All systems: reviewed and no additional remarkable complaints except mentioned above Objective Vital Signs Stable - Constitutional Appears: Non-toxic, No Acute Distress Head Exam: NORMAL INSPECTION Eye Exam: Normal appearance Respiratory Exam: NORMAL BREATHING PATTERN, on O2 supplementation, wheezing noted bilaterally, decreased breath sounds Cardiovascular Exam: +S1, +S2 GI & Abdominal Exam: Soft Neurological Exam: Alert, Awake Psychiatric exam: Normal Affect, Normal Mood Skin Exam: Normal Color, Warm Assessment and Plan monitor vitals monitor labs Cont meds Cont tx consultants appreciated input IV solumedrol taper duonebs increase insulin and add januvia for glycemia control obtain CT chest w/o contrast rest of plan as ordered Objective - Vital Signs/Intake and Output Vital Signs (last 24 hours): Temp Pulse Resp BP Pulse Ox 98.1 F 103 H 20 137/77 98 01/18/19 08:07 01/18/19 09:29 01/18/19 08:07 01/18/19 09:51 01/18/19 08:07 - Medications Medications: Current Medications Acetaminophen (Tylenol 325mg Tab) 650 mg PO Q6 PRN PRN Reason: Headache Last Admin: 01/16/19 03:02 Dose: 650 mg Albuterol/Ipratropium (Duoneb 3 Mg/0.5 Mg (3 Ml) Ud) 3 ml INH RQID [facility] Last Admin: 01/18/19 11:19 Dose: 3 ml Aspirin (Ecotrin) 81 mg PO DAILY [facility] Last Admin: 01/18/19 09:29 Dose: 81 mg Atorvastatin Calcium (Lipitor) 20 mg PO HS [facility] Last Admin: 01/17/19 21:23 Dose: 20 mg Fluticasone Propionate (Flonase) 2 spr BRIDGETT HS [facility] Last Admin: 01/17/19 21:22 Dose: 2 spr Folic Acid (Folic Acid) 1 mg PO DAILY [facility] Last Admin: 01/18/19 09:29 Dose: 1 mg Furosemide (Lasix) 40 mg IV DAILY [facility] Last Admin: 01/18/19 09:51 Dose: 40 mg Gabapentin (Neurontin) 300 mg PO Q8 [facility] Last Admin: 01/18/19 09:31 Dose: 300 mg Guaifenesin/Dextromethorphan (Robitussin Dm) 10 ml PO Q6 [facility] Last Admin: 01/18/19 09:33 Dose: 10 ml Azithromycin 500 mg/ Sodium (Chloride) 250 mls @ 250 mls/hr IVPB DAILY [facility]; Protocol Last Admin: 01/18/19 09:51 Dose: 250 mls/hr Ibuprofen (Motrin Tab) 600 mg PO Q8 PRN PRN Reason: Headache Last Admin: 01/17/19 10:42 Dose: 600 mg Insulin Detemir (Levemir) 60 units SC HS [facility] Insulin Human Lispro (Humalog) 0 units SC ACHS [facility]; Protocol Last Admin: 01/18/19 09:28 Dose: 12 units Losartan Potassium (Cozaar) 100 mg PO DAILY [facility] Last Admin: 01/18/19 09:29 Dose: 100 mg Methylprednisolone (Solu-Medrol) 40 mg IVP Q12 [facility] Last Admin: 01/18/19 09:32 Dose: 40 mg Montelukast Sodium (Singulair) 10 mg PO HS [facility] Last Admin: 01/17/19 21:23 Dose: 10 mg Pantoprazole Sodium (Protonix Ec Tab) 40 mg PO DAILY [facility] Last Admin: 01/18/19 09:32 Dose: 40 mg Sitagliptin Phosphate (Januvia) 100 mg PO DAILY [facility] - Labs Labs: 01/17/19 04:15 01/16/19 05:05 Assessment and Plan (1) Asthma Status: Acute (2) CHF (congestive heart failure) Status: Acute
[2019-01-18] MEDS: Insulin Detemir 100 Units/ml Inj SC SCH (21:57)
[2019-01-19] MEDS: guaiFENesin DM 200 mg-20 mg/10 ml UD PO SCH ×4 (04:01→21:46)
[2019-01-19 06:35] LABS: HEMOGLOBIN 11.3 g/dL (12.0-16.0); MEAN CELL VOLUME 91.1 fl (81.0-99.0); MEAN CORPUSCULAR HEMOGLOBIN 29.7 pg (27.0-31.0); MEAN CORPUSCULAR HGB CONC 32.6 g/dL (33.0-37.0); RBC 3.82 Mil/uL (3.80-5.20); RED CELL DISTRIBUTION WIDTH 16.4 % (11.5-14.5); WHITE BLOOD COUNT 14.1 K/uL (4.8-10.8)
[2019-01-19 06:53] LABS: ALB/GLOB RATIO 1.7 (1.0-2.1); ALT/SGPT 95 U/L (9-52); AST/SGOT 48 U/L (14-36); BLOOD UREA NITROGEN 32 mg/dl (7-17); CALCIUM 9.4 mg/dL (8.4-10.2); GFR NON-AFRICAN AMERICAN > 60
[2019-01-19] MEDS: Insulin Lispro (humaLOG) 100 Units/ml Inj SC SCH ×4 (07:54→21:42)
[2019-01-19] MEDS: Albuterol-Ipratrop 3 mg / 0.5 (3 ml) UD INH SCH ×4 (08:01→19:09)
[2019-01-19] MEDS ORDERED: methylPREDNISolone 40 MG in Sodium Chloride 0.9% 50 ML IVPB SCH (09:00)
[2019-01-19] MEDS: Pantoprazole 40 mg EC Tab PO SCH (09:31)
[2019-01-19] MEDS: Azithromycin 500 MG in Sodium Chloride 0.9% 250 ML IVPB SCH (09:35)
[2019-01-19] MEDS: MethylPREDNISolone 40 mg Vial IVP SCH (09:38)
--- NOTE | 2019-01-19 12:40 | CT ---
Date of service: 01/19/2019 CT chest without IV contrast Indication: dyspnea, asthma exac, decreased breath sounds Technique: Contiguous axial images were obtained through the chest without intravenous contrast enhancement. Sagittal and coronal reconstructions were generated and reviewed. This CT exam was performed using 1 or more of the following dose reduction techniques: Automated exposure control, adjustment of the MAA and/or kV according to patient size, and/or use of iterative reconstruction technique. Radiation dose (DLP): 568.91 MGy-cm. Comparison: Chest x-ray performed 01/16/19 Findings: Visualized portions of the inferior thyroid gland appear unremarkable. The mediastinal and hilar vascular structures appear within normal limits. Cardiomegaly. Dense atherosclerotic calcifications of the aorta. Mediastinal adenopathy measuring up to 10 mm in short axis (pretracheal), nonspecific. No focal consolidation. No pleural effusion. No pneumothorax. No suspicious pulmonary nodules measuring greater than 5 mm. Asymmetric breast tissue on the left as compared to the right of on certain significance. Limited visualization of the noncontrast upper abdomen appears grossly unremarkable. Degenerative changes. Impression: No focal consolidation. No pleural effusion. No pneumothorax. Cardiomegaly. Mediastinal adenopathy measuring up to 10 mm in short axis (pretracheal), nonspecific. Asymmetric breast tissue on the left as compared to the right; correlate clinically including prior breast imaging results and outpatient follow-up as indicated.
--- NOTE | 2019-01-19 18:00 | CP.PCM.PN ---
Subjective - Date & Time of Evaluation Date of Evaluation: 01/19/19 Time of Evaluation: 17:54 - Subjective Subjective: LESS DYSPNEA AND ORTHOPNEA. Objective - Vital Signs/Intake and Output Vital Signs (last 24 hours): Temp Pulse Resp BP Pulse Ox 98.4 F 82 20 108/68 96 01/19/19 16:07 01/19/19 16:07 01/19/19 16:07 01/19/19 16:07 01/19/19 16:07 - Medications Medications: Current Medications Acetaminophen (Tylenol 325mg Tab) 650 mg PO Q6 PRN PRN Reason: Headache Last Admin: 01/16/19 03:02 Dose: 650 mg Albuterol/Ipratropium (Duoneb 3 Mg/0.5 Mg (3 Ml) Ud) 3 ml INH RQID [facility] Last Admin: 01/19/19 15:05 Dose: 3 ml Aspirin (Ecotrin) 81 mg PO DAILY [facility] Last Admin: 01/19/19 09:28 Dose: 81 mg Atorvastatin Calcium (Lipitor) 20 mg PO HS [facility] Last Admin: 01/18/19 21:56 Dose: 20 mg Fluticasone Propionate (Flonase) 2 spr BRIDGETT HS [facility] Last Admin: 01/18/19 21:56 Dose: 2 spr Folic Acid (Folic Acid) 1 mg PO DAILY [facility] Last Admin: 01/19/19 09:28 Dose: 1 mg Furosemide (Lasix) 40 mg PO DAILY [facility] Gabapentin (Neurontin) 300 mg PO Q8 [facility] Last Admin: 01/19/19 17:45 Dose: 300 mg Guaifenesin/Dextromethorphan (Robitussin Dm) 10 ml PO Q6 [facility] Last Admin: 01/19/19 17:46 Dose: 10 ml Ibuprofen (Motrin Tab) 600 mg PO Q8 PRN PRN Reason: Headache Last Admin: 01/17/19 10:42 Dose: 600 mg Insulin Detemir (Levemir) 60 units SC HS [facility] Last Admin: 01/18/19 21:57 Dose: 60 units Insulin Human Lispro (Humalog) 0 units SC ACHS [facility]; Protocol Last Admin: 01/19/19 17:42 Dose: 12 units Losartan Potassium (Cozaar) 100 mg PO DAILY [facility] Last Admin: 01/19/19 09:27 Dose: 100 mg Methylprednisolone (Solu-Medrol) 40 mg IVP DAILY [facility] Last Admin: 01/19/19 09:38 Dose: 40 mg Montelukast Sodium (Singulair) 10 mg PO HS [facility] Last Admin: 01/18/19 21:56 Dose: 10 mg Pantoprazole Sodium (Protonix Ec Tab) 40 mg PO DAILY [facility] Last Admin: 01/19/19 09:31 Dose: 40 mg Sitagliptin Phosphate (Januvia) 100 mg PO DAILY [facility] Last Admin: 01/19/19 09:28 Dose: 100 mg - Labs Labs: 01/19/19 04:30 01/19/19 04:30 Assessment and Plan (1) Asthma Status: Acute (2) CHF (congestive heart failure) Status: Acute (3) Dyslipidemia Status: Acute (4) Fall Status: Acute (5) HTN (hypertension) Status: Acute (6) Head trauma Status: Acute - Assessment and Plan (Free Text) Plan: STOP IV LASIX, START PO LASIX GIVEN BUN/CR IN PRERENAL RANGE (STEROIDS ARE ALSO CONTRIBUTING). BP AND HR STABLE PT STABLE FROM CARDIAC STANDPOINT. 45 MIN TOTAL CARE TIME.
[2019-01-19] MEDS: Insulin Detemir 100 Units/ml Inj SC SCH (21:43)
[2019-01-20] MEDS: guaiFENesin DM 200 mg-20 mg/10 ml UD PO SCH ×4 (04:13→21:21)
[2019-01-20] MEDS: Insulin Lispro (humaLOG) 100 Units/ml Inj SC SCH ×5 (06:54→22:35)
[2019-01-20] MEDS: Albuterol-Ipratrop 3 mg / 0.5 (3 ml) UD INH SCH ×4 (08:04→19:16)
[2019-01-20] MEDS: Pantoprazole 40 mg EC Tab PO SCH (09:38)
[2019-01-20] MEDS: MethylPREDNISolone 40 mg Vial IVP SCH (09:41)
--- NOTE | 2019-01-20 10:46 | CP.PCM.PCO ---
Assessment/Plan - Assessment and Plan (Free Text) Assessment: Patient seen and examined this morning, still with wheezing, cough on nasal cannula. Patient referred to TCU for continuation of iv antibiotics 5-7 more days, iv steroids and oxygen therapy. Physical therapy ordered. Six minute walk test also to be performed today. Discussed with Dr Ríos who agrees with plan.
--- NOTE | 2019-01-20 15:22 | CON ---
DATE: 01/20/2019 HISTORY OF PRESENT ILLNESS: Ms. Campos is a 58-year-old female who is admitted with congestive heart failure, status post fall at home. She is referred for pulmonary evaluation because of asthma exacerbation. She has a past medical history of congestive heart failure, asthma, hypertension, diabetes mellitus, and hyperlipidemia. She had an accidental fall at home with striking of her back and head on the ground as she fell. She was brought to the emergency room by family and the hospital course has been complicated with acute asthma. FAMILY HISTORY: Noncontributory. SOCIAL HISTORY: She denies smoking or alcohol use. REVIEW OF SYSTEMS: Remarkable for shortness of breath, exercise intolerance, and chest tightness. She has been in the hospital for a few days and evaluation done by Cardiology and Neurology has been non-revealing. PHYSICAL EXAMINATION: GENERAL: The patient is alert, oriented, appears mildly short of breath on exertion. VITAL SIGNS: Blood pressure 105/72 with a pulse of 87, respiratory rate 18. She is afebrile, O2 sat 99% on room air. SKIN: Shows fair turgor. HEENT: Pupils equal, reactive to light and accommodation. Mouth shows fair hygiene. LUNGS: Shows coarse bilateral rales with wheezing. HEART: Regular. BREASTS: Normal. ABDOMEN: Soft, nontender, no organomegaly. EXTREMITIES: Show 1+ pitting pedal edema. CENTRAL NERVOUS SYSTEM: Exam grossly intact. LABORATORY DATA: WBC 14.1, hemoglobin 11.3, platelet count 211,000. Sodium 137, potassium 3.9, BUN of 32, creatinine 0.8, serum glucose 294. AST 48, ALT 95. Chest x-ray is remarkable for no active disease noted. CAT scan of the chest is remarkable for no focal consolidation, no pleural effusion, no pneumothorax, cardiomegaly noted, mediastinal adenopathy measuring up to 10 mm in short axis. There is nonspecific symmetric breast tissue, suggestion of outpatient breast imaging was done by Radiology. IMPRESSION: A 58-year-old female with an accidental fall at home, admitted with congestive heart failure which appears to be improving and presently has asthma exacerbation. PLAN: Aerosolized bronchodilators, intravenous steroids, oxygen. Would continue management as ordered. Further therapy will depend on findings. Abdoul Zamorano MD [facility] # [phone]
[2019-01-20] MEDS: Azithromycin 500 MG in Sodium Chloride 0.9% 250 ML IVPB SCH (17:20)
--- NOTE | 2019-01-20 19:40 | CP.PCM.PN ---
Subjective - Date & Time of Evaluation Date of Evaluation: 01/19/19 Time of Evaluation: 11:00 - Subjective Subjective: patient seen and examined at bedside. Interim events noted improvement from yesterday though still with SOB, especially without o2 suppl ementation and on exertion also cough denies cp/fever/chills. available diagnostic data reviewed Review of Systems All systems: reviewed and no additional remarkable complaints except mentioned above Objective Vital Signs Stable - Constitutional Appears: Non-toxic, No Acute Distress Head Exam: NORMAL INSPECTION Eye Exam: Normal appearance Respiratory Exam: NORMAL BREATHING PATTERN, on O2 supplementation, wheezing noted bilaterally, decreased breath sounds Cardiovascular Exam: +S1, +S2 GI & Abdominal Exam: Soft Neurological Exam: Alert, Awake Psychiatric exam: Normal Affect, Normal Mood Skin Exam: Normal Color, Warm Assessment and Plan monitor vitals monitor labs Cont meds Cont tx consultants appreciated input IV solumedrol taper duonebs increase insulin and c/w januvia for glycemia control CT chest w/o contrast reviewed with patient Consult Pulmonology rest of plan as ordered Objective - Vital Signs/Intake and Output Vital Signs (last 24 hours): Temp Pulse Resp BP Pulse Ox 98.3 F 84 20 108/69 95 01/20/19 16:20 01/20/19 16:20 01/20/19 16:20 01/20/19 16:20 01/20/19 16:20 - Medications Medications: Current Medications Acetaminophen (Tylenol 325mg Tab) 650 mg PO Q6 PRN PRN Reason: Headache Last Admin: 01/16/19 03:02 Dose: 650 mg Albuterol/Ipratropium (Duoneb 3 Mg/0.5 Mg (3 Ml) Ud) 3 ml INH RQID [facility] Last Admin: 01/20/19 19:16 Dose: 3 ml Aspirin (Ecotrin) 81 mg PO DAILY [facility] Last Admin: 01/20/19 09:35 Dose: 81 mg Atorvastatin Calcium (Lipitor) 20 mg PO HS [facility] Last Admin: 01/19/19 21:46 Dose: 20 mg Fluticasone Propionate (Flonase) 2 spr BRIDGETT HS [facility] Last Admin: 01/19/19 21:42 Dose: 2 spr Folic Acid (Folic Acid) 1 mg PO DAILY [facility] Last Admin: 01/20/19 09:36 Dose: 1 mg Furosemide (Lasix) 40 mg PO DAILY [facility] Last Admin: 01/20/19 09:36 Dose: 40 mg Gabapentin (Neurontin) 300 mg PO Q8 [facility] Last Admin: 01/20/19 17:22 Dose: 300 mg Guaifenesin/Dextromethorphan (Robitussin Dm) 10 ml PO Q6 [facility] Last Admin: 01/20/19 17:21 Dose: 10 ml Azithromycin 500 mg/ Sodium (Chloride) 250 mls @ 250 mls/hr IVPB DAILY [facility]; Protocol Last Admin: 01/20/19 17:20 Dose: 250 mls/hr Ibuprofen (Motrin Tab) 600 mg PO Q8 PRN PRN Reason: Headache Last Admin: 01/17/19 10:42 Dose: 600 mg Insulin Detemir (Levemir) 60 units SC HS [facility] Last Admin: 01/19/19 21:43 Dose: 60 units Insulin Human Lispro (Humalog) 0 units SC ACHS [facility]; Protocol Last Admin: 01/20/19 17:23 Dose: 12 units Losartan Potassium (Cozaar) 100 mg PO DAILY [facility] Last Admin: 01/20/19 09:34 Dose: 100 mg Methylprednisolone (Solu-Medrol) 40 mg IVP DAILY [facility] Last Admin: 01/20/19 09:41 Dose: 40 mg Montelukast Sodium (Singulair) 10 mg PO HS [facility] Last Admin: 01/19/19 21:45 Dose: 10 mg Pantoprazole Sodium (Protonix Ec Tab) 40 mg PO DAILY [facility] Last Admin: 01/20/19 09:38 Dose: 40 mg Sitagliptin Phosphate (Januvia) 100 mg PO DAILY [facility] Last Admin: 01/20/19 09:36 Dose: 100 mg - Labs Labs: 01/19/19 04:30 01/19/19 04:30 Assessment and Plan (1) Asthma Status: Acute (2) CHF (congestive heart failure) Status: Acute
--- NOTE | 2019-01-20 19:42 | CP.PCM.PN ---
Subjective - Date & Time of Evaluation Date of Evaluation: 01/20/19 Time of Evaluation: 09:00 - Subjective Subjective: patient seen and examined at bedside. Interim events noted improvement from yesterday though still with SOB denies cp/fever/chills. available diagnostic data reviewed Review of Systems All systems: reviewed and no additional remarkable complaints except mentioned above Objective Vital Signs Stable - Constitutional Appears: Non-toxic, No Acute Distress Head Exam: NORMAL INSPECTION Eye Exam: Normal appearance Respiratory Exam: NORMAL BREATHING PATTERN, on O2 supplementation, wheezing noted bilaterally, decreased breath sounds Cardiovascular Exam: +S1, +S2 GI & Abdominal Exam: Soft Neurological Exam: Alert, Awake Psychiatric exam: Normal Affect, Normal Mood Skin Exam: Normal Color, Warm Assessment and Plan monitor vitals monitor labs Cont meds Cont tx consultants appreciated input IV solumedrol duonebs IV abx consult Endocrinology for glycemia control Consulted Pulmonology appreciate recommendation rest of plan as ordered Objective - Vital Signs/Intake and Output Vital Signs (last 24 hours): Temp Pulse Resp BP Pulse Ox 98.3 F 84 20 108/69 95 01/20/19 16:20 01/20/19 16:20 01/20/19 16:20 01/20/19 16:20 01/20/19 16:20 - Medications Medications: Current Medications Acetaminophen (Tylenol 325mg Tab) 650 mg PO Q6 PRN PRN Reason: Headache Last Admin: 01/16/19 03:02 Dose: 650 mg Albuterol/Ipratropium (Duoneb 3 Mg/0.5 Mg (3 Ml) Ud) 3 ml INH RQID [facility] Last Admin: 01/20/19 19:16 Dose: 3 ml Aspirin (Ecotrin) 81 mg PO DAILY [facility] Last Admin: 01/20/19 09:35 Dose: 81 mg Atorvastatin Calcium (Lipitor) 20 mg PO HS [facility] Last Admin: 01/19/19 21:46 Dose: 20 mg Fluticasone Propionate (Flonase) 2 spr BRIDGETT HS [facility] Last Admin: 01/19/19 21:42 Dose: 2 spr Folic Acid (Folic Acid) 1 mg PO DAILY [facility] Last Admin: 01/20/19 09:36 Dose: 1 mg Furosemide (Lasix) 40 mg PO DAILY [facility] Last Admin: 01/20/19 09:36 Dose: 40 mg Gabapentin (Neurontin) 300 mg PO Q8 [facility] Last Admin: 01/20/19 17:22 Dose: 300 mg Guaifenesin/Dextromethorphan (Robitussin Dm) 10 ml PO Q6 [facility] Last Admin: 01/20/19 17:21 Dose: 10 ml Azithromycin 500 mg/ Sodium (Chloride) 250 mls @ 250 mls/hr IVPB DAILY [facility]; Protocol Last Admin: 01/20/19 17:20 Dose: 250 mls/hr Ibuprofen (Motrin Tab) 600 mg PO Q8 PRN PRN Reason: Headache Last Admin: 01/17/19 10:42 Dose: 600 mg Insulin Detemir (Levemir) 60 units SC HS [facility] Last Admin: 01/19/19 21:43 Dose: 60 units Insulin Human Lispro (Humalog) 0 units SC ACHS [facility]; Protocol Last Admin: 01/20/19 17:23 Dose: 12 units Losartan Potassium (Cozaar) 100 mg PO DAILY [facility] Last Admin: 01/20/19 09:34 Dose: 100 mg Methylprednisolone (Solu-Medrol) 40 mg IVP DAILY [facility] Last Admin: 01/20/19 09:41 Dose: 40 mg Montelukast Sodium (Singulair) 10 mg PO HS [facility] Last Admin: 01/19/19 21:45 Dose: 10 mg Pantoprazole Sodium (Protonix Ec Tab) 40 mg PO DAILY [facility] Last Admin: 01/20/19 09:38 Dose: 40 mg Sitagliptin Phosphate (Januvia) 100 mg PO DAILY [facility] Last Admin: 01/20/19 09:36 Dose: 100 mg - Labs Labs: 01/19/19 04:30 01/19/19 04:30 Assessment and Plan (1) Asthma Status: Acute (2) CHF (congestive heart failure) Status: Acute
[2019-01-20] MEDS: Insulin Detemir 100 Units/ml Inj SC SCH (21:22)
[2019-01-20] MEDS ORDERED: Insulin Detemir 100 Units/ml Inj SC SCH (22:00)
[2019-01-21] MEDS: guaiFENesin DM 200 mg-20 mg/10 ml UD PO SCH ×2 (04:28→10:52)
[2019-01-21 05:27] LABS: HEMOGLOBIN 11.4 g/dL (12.0-16.0); MEAN CELL VOLUME 90.9 fl (81.0-99.0); MEAN CORPUSCULAR HEMOGLOBIN 28.9 pg (27.0-31.0); MEAN CORPUSCULAR HGB CONC 31.8 g/dL (33.0-37.0); RBC 3.93 Mil/uL (3.80-5.20); RED CELL DISTRIBUTION WIDTH 16.3 % (11.5-14.5); WHITE BLOOD COUNT 14.5 K/uL (4.8-10.8)
[2019-01-21 05:37] LABS: ALB/GLOB RATIO 1.4 (1.0-2.1); ALBUMIN 3.7 g/dL (3.5-5.0); ALT/SGPT 63 U/L (9-52); AST/SGOT 20 U/L (14-36); BLOOD UREA NITROGEN 24 mg/dl (7-17); GFR NON-AFRICAN AMERICAN > 60
--- NOTE | 2019-01-21 07:02 | CON ---
DATE: 01/20/2019 ENDOCRINOLOGY CONSULT LOCATION: In room 403. HISTORY OF PRESENT ILLNESS: This is a 58-year-old female with known history of type 2 insulin-requiring diabetes presenting here with an accidental fall, sustaining a moderate cerebral hematoma, and is now being referred for diabetic evaluation because of marked hyperglycemic accelerations following the initiation of IV steroid therapy, also for acute exacerbation of COPD as noted. Her latest glucose levels tonight have ranged from 294 to 495 and over 500 mg/dL. PAST MEDICAL HISTORY: History of type 2 insulin-requiring diabetes, on Lantus taken as 45 units subcu at bedtime daily, history of hypertension and dyslipidemia, history of coronary artery disease and peripheral vasculopathy, history of diabetic polyneuropathy as noted, history of chronic bronchial asthma with previous admissions per exacerbations of COPD, history of diffuse osteoarthritis with previous lumbar and hip surgeries as noted. FAMILY HISTORY: Positive for hypertension and diabetes. SOCIAL HISTORY: The patient has supportive family. No known substance use. REVIEW OF SYSTEMS: Admits to generalized body weakness with progressive bouts of dizziness and lightheadedness and bifrontal headache. Also admits to easy fatigability and tiredness and recent hypersomnolence. No chest pains or palpitations but admits to progressive shortness of breath initially on exertion and then at rest with paroxysmal nocturnal dyspnea. Her oral intake has been variable with nausea and dyspepsia and vague upper abdominal pains. Also admits to mild polyuria, nocturia, polydipsia. PHYSICAL EXAMINATION: GENERAL: This is an overweight female, in no apparent distress. VITAL SIGNS: Blood pressure of 140/80, pulse of 100 beats per minute and regular, temperature 99, respirations 20, height is 4 feet 9 inches. Weight is 191 pounds. HEENT: Head normocephalic. Eyes anicteric with pink conjunctivae. Funduscopy not possible at this time. Ears, nose, and throat, otherwise, normal. NECK: Supple. Thyroid gland is normal size. No carotid bruit or any cervical adenopathy. CARDIOPULMONARY: Some adynamic precordium. S1, S2, rapid and regular. LUNGS: Clear to auscultation. ABDOMEN: Flat, soft with positive bowel sounds. EXTREMITIES: No peripheral edema. Pulses are +2 bilaterally. LABORATORY DATA: Chemistries, BUN of 23, sodium 137, potassium 5.1, chloride 98, CO2 of 27, glucose 427, and creatinine 0.8. ASSESSMENT: This is a 58-year-old female with uncontrolled and decompensated type 2 insulin-requiring diabetes presenting here with acute exacerbation of chronic obstructive pulmonary disease and placed on IV steroid therapy with marked hyperglycemic accelerations as expected transiently with the increased insulin resistance thereof. She also has a recent accidental fall with cerebral hematoma as noted. She also has diabetic microvascular complications of polyneuropathy and macrovascular complications of coronary artery disease or peripheral vasculopathy as noted. PLAN OF MANAGEMENT: We will modify her current insulin regimen and switch her over to a more physiologic basal and bolus insulin drug combination given at a much higher dosing regimen as ordered. We will add Humalog given as 30 units t.i.d. before meals to start tomorrow morning as ordered. We will increase her basal insulin with Levemir to be given as 80 units subcu at bedtime daily to start tonight. We will modify the coverage scale to obviate hypoglycemia and delayed orders have been given. We will obtain serial chemistries and supplement accordingly as needed. We will follow. Magui Jerez MD
[2019-01-21] MEDS: Albuterol-Ipratrop 3 mg / 0.5 (3 ml) UD INH SCH ×2 (07:24→11:17)
[2019-01-21 07:47] VITALS: RESP 18
--- NOTE | 2019-01-21 08:07 | CP.PCM.PN ---
Subjective - Date & Time of Evaluation Date of Evaluation: 01/21/19 Time of Evaluation: 08:07 - Subjective Subjective: SOB IMPROVING COUGH LESS NO CHEST PAINS Objective - Vital Signs/Intake and Output Vital Signs (last 24 hours): Temp Pulse Resp BP Pulse Ox 97.9 F 82 18 109/72 94 L 01/21/19 07:47 01/21/19 07:47 01/21/19 07:47 01/21/19 07:47 01/21/19 07:47 - Medications Medications: Current Medications Acetaminophen (Tylenol 325mg Tab) 650 mg PO Q6 PRN PRN Reason: Headache Last Admin: 01/16/19 03:02 Dose: 650 mg Albuterol/Ipratropium (Duoneb 3 Mg/0.5 Mg (3 Ml) Ud) 3 ml INH RQID [facility] Last Admin: 01/21/19 07:24 Dose: 3 ml Aspirin (Ecotrin) 81 mg PO DAILY [facility] Last Admin: 01/20/19 09:35 Dose: 81 mg Atorvastatin Calcium (Lipitor) 20 mg PO HS [facility] Last Admin: 01/20/19 21:21 Dose: 20 mg Fluticasone Propionate (Flonase) 2 spr BRIDGETT HS [facility] Last Admin: 01/20/19 21:22 Dose: 2 spr Folic Acid (Folic Acid) 1 mg PO DAILY [facility] Last Admin: 01/20/19 09:36 Dose: 1 mg Furosemide (Lasix) 40 mg PO DAILY [facility] Last Admin: 01/20/19 09:36 Dose: 40 mg Gabapentin (Neurontin) 300 mg PO Q8 [facility] Last Admin: 01/21/19 01:00 Dose: 300 mg Guaifenesin/Dextromethorphan (Robitussin Dm) 10 ml PO Q6 [facility] Last Admin: 01/21/19 04:28 Dose: 10 ml Azithromycin 500 mg/ Sodium (Chloride) 250 mls @ 250 mls/hr IVPB DAILY [facility]; Pr otocol Last Admin: 01/20/19 17:20 Dose: 250 mls/hr Ibuprofen (Motrin Tab) 600 mg PO Q8 PRN PRN Reason: Headache Last Admin: 01/17/19 10:42 Dose: 600 mg Insulin Detemir (Levemir) 80 units SC HS [facility] Last Admin: 01/20/19 22:36 Dose: 20 units Insulin Human Lispro (Humalog) 30 units SC AC [facility] Insulin Human Lispro (Humalog) 0 units SC ACHS [facility] Last Admin: 01/20/19 22:35 Dose: 1 unit Losartan Potassium (Cozaar) 100 mg PO DAILY [facility] Last Admin: 01/20/19 09:34 Dose: 100 mg Methylprednisolone (Solu-Medrol) 40 mg IVP DAILY [facility] Last Admin: 01/20/19 09:41 Dose: 40 mg Montelukast Sodium (Singulair) 10 mg PO HS [facility] Last Admin: 01/20/19 21:21 Dose: 10 mg Pantoprazole Sodium (Protonix Ec Tab) 40 mg PO DAILY [facility] Last Admin: 01/20/19 09:38 Dose: 40 mg Sitagliptin Phosphate (Januvia) 100 mg PO DAILY [facility] Last Admin: 01/20/19 09:36 Dose: 100 mg - Labs Labs: 01/21/19 05:10 01/21/19 05:10 - Constitutional Appears: No Acute Distress - Head Exam Head Exam: ATRAUMATIC, NORMAL INSPECTION, NORMOCEPHALIC - Eye Exam Eye Exam: EOMI, Normal appearance, PERRL Pupil Exam: NORMAL ACCOMODATION, PERRL - ENT Exam ENT Exam: Mucous Membranes Moist, Normal Exam - Neck Exam Neck Exam: Full ROM, Normal Inspection. absent: Lymphadenopathy - Respiratory Exam Respiratory Exam: Prolonged Expiratory Phase, Wheezes, NORMAL BREATHING PATTERN - Cardiovascular Exam Cardiovascular Exam: REGULAR RHYTHM, +S1, +S2. absent: Murmur - GI/Abdominal Exam GI & Abdominal Exam: Soft, Normal Bowel Sounds. absent: Tenderness - Rectal Exam Rectal Exam: NORMAL INSPECTION - Extremities Exam Extremities Exam: Full ROM, Normal Capillary Refill, Normal Inspection, Pedal Edema. absent: Joint Swelling Additional comments: EDEMA LESS - Back Exam Back Exam: NORMAL INSPECTION - Neurological Exam Neurological Exam: Alert, Awake, CN II-XII Intact, Normal Gait, Oriented x3 - Psychiatric Exam Psychiatric exam: Normal Affect, Normal Mood - Skin Skin Exam: Dry, Intact, Normal Color, Warm Assessment and Plan - Assessment and Plan (Free Text) Assessment: ASTHMA IMPROVING Plan: TAPER STEROIDS
[2019-01-21] MEDS: Pantoprazole 40 mg EC Tab PO SCH (08:23)
[2019-01-21] MEDS: Insulin Lispro (humaLOG) 100 Units/ml Inj SC SCH ×4 (08:26→11:33)
[2019-01-21] MEDS: Azithromycin 500 MG in Sodium Chloride 0.9% 250 ML IVPB SCH (08:41)
[2019-01-21] MEDS: MethylPREDNISolone 40 mg Vial IVP SCH (11:04)
--- NOTE | 2019-01-21 11:41 | CP.PCM.PCO ---
Assessment/Plan - Assessment and Plan (Free Text) Assessment: Patient seen and examined this morning during rounds. VSS, patient chest pain free. cough has lessened, ambulating freely without shortness of breath. 6 Min walk test revealed patient desaturated yesterday to 86 % with ambulation/exertion. Patient referred for Home Oxygen with case management Will discharge home on medrol pack, z pack, albuterol and oxygen therapy. Discussed with J Luis TROY who agrees with discharge.
[2019-01-21 12:26] VITALS: BP 96/59; PULSE 83; TEMP 98.4; O2SAT 96
--- NOTE | 2019-01-23 08:13 | PN ---
DATE: 01/21/2019 ENDOCRINOLOGY FOLLOWUP NOTE LOCATION: Room 403. SUBJECTIVE: This is a 58-year-old female with recent uncontrolled type 2 insulin-requiring diabetes, presenting here with acute exacerbation of COPD with supervening congestive heart failure and has been started on IV steroid therapy with supervening marked hyperglycemic accelerations as transiently expected thereof. Her glucose levels have ranged from 228 to over 500 mg/dL. LABORATORY DATA: Her chemistry showed a BUN of 24, sodium 136, potassium 4.1, chloride 93, CO2 of 34, glucose 258 and creatinine 0.7. ASSESSMENT: This is a 58-year-old female with uncontrolled and decompensated type 2 insulin-requiring diabetes, presenting here with acute exacerbation of asthmatic bronchitis and underlying COPD with supervening congestive heart failure and is now being followed closely for metabolic management. PLAN OF MANAGEMENT: We will modify once again her basal and bolus insulin regimen and increase the basal insulin with Levemir to be given as 80 units subcu at bedtime daily to start tonight as ordered. We will also titrate her Humalog to 30 units t.i.d. before meals to start today as ordered. We will continue the low-dose correction scale using Humalog insulin as given to obviate hypoglycemia. We will obtain serial chemistries and supplement accordingly as needed. We will follow. Magui Jerez MD
--- NOTE | 2019-01-23 10:33 | PQF ---
PROVIDER RESPONSE TEXT: From assessment, it appears to be Moderate persistent asthma. REVIEWER QUERY TEXT: Asthma Specificity and Type Physician?s Documentation Request This Form is Not a Permanent Document in the Medical Record Pt Name: TRINI GANDHI MR #: [id number] Payor: MEDICAID HMO Unit/Bed: [id number].TEL-H403-2 Adm Date: 01/16/2019 1:10:00 PM Reviewer: Arina Chiu Ext. Query Date: 01/17/2019 7:36:00 AM Asthma Specificity and Type [id number] By submitting this query, we are merely seeking further clarification of documentation to accurately reflect all conditions that you are monitoring, evaluating, treating or that extend the hospitalizati on or utilize additional resources of care. Please utilize your independent clinical judgment when ad dressing the question(s) below. Dear Doctor J Luis Cesar, The patient?s Clinical Indicators include: Presents s/p fall with scalp hematoma. Secondary c/o cough with white sputum, SOB and wheezing. No im provement with inhaler or nebulizer. CXR:CHF with developing pulmonary edema Rx: Solumedrol, Duonebs, Singulair, Zithromax, Flonase Asthma Exacerbation is documented in the Medical Record by the ER MD. Please specify the type and se verity of asthma . Such as: -- Mild intermittent -- Mild persistent -- Moderate persistent -- Severe persistent -- Exercise induced bronchospasm -- Cough variant asthma -- Other, please specify PLEASE DOCUMENT ANY ADDITIONAL DIAGNOSES AND/OR SPECIFICITY IN THE PROGRESS NOTES AND/OR DISCHARGE SAL[facility]. Clinically unable to determine/unknown Disagree with the above request Need to discuss Query created by: Arina Chiu on 01/17/2019 7:36 AM Electronically signed by: J Luis Cesar APN 01/23/2019 10:30 AM
--- NOTE | 2019-01-23 10:33 | PQF ---
PROVIDER RESPONSE TEXT: BMI is 41.2; diagnosis would be obesity. REVIEWER QUERY TEXT: Documentation Clarification Your help is requested in clarifying the following clinical documentation, if you can please further specify in the medical record and discharge summary. EMR has the patient listed as being 4'9", weight of 190 pounds with a BMI of 41.2 Please clarify if there is an associated diagnosis to go along with the BMI or not. Fashion Coordinator: Overweight. + weight gain The patient's Clinical Indicators include: EMR has the patient listed as being 4'9", weight of 190 pounds with a BMI of 41.2 Monitor weight, labs, intake Query created by: Arina Chiu on 01/17/2019 7:32 AM Electronically signed by: J Luis Cesar APN 01/23/2019 10:30 AM
--- NOTE | 2019-01-24 13:20 | PQF ---
PROVIDER RESPONSE TEXT: Asthmatic (hx of asthma)- without status asthmaticus REVIEWER QUERY TEXT: COPD Specificity COPD - Chronic Obstructive Pulmonary Disease is documented in the Medical Record. Please specify the associated condition (includes suspected or probable) Such as: -- Bronchitis - acute -- Asthmatic - with /without status asthmaticus -- Exacerbation - acute -- Lower respiratory infection - acute -- Other, please specify The patient's Clinical Indicators include: XX Query created by: Britney Huang on 01/23/2019 1:02 PM Electronically signed by: J Luis Cesar APN 01/24/2019 1:17 PM
== END 2019-01-21 15:25 | disposition home or self-care (01) | DRG 541 ==
LOC: H.ER 10:48 → H.ERHOLD 12:34 → H.TEL 15:44 → OBSVTOIN 01-16 13:10
PROVIDERS: ADMIT Family Medicine; ATTEND Family Medicine
PROC: 3E0234Z Introduction of Serum, Toxoid and Vaccine into Muscle, Percutaneous Approach (ICD-10-PCS; principal; 2019-01-14)
PROC: 3E02340 Introduction of Influenza Vaccine into Muscle, Percutaneous Approach (ICD-10-PCS; 2019-01-14)
DX: J44.9 Chronic obstructive pulmonary disease, unspecified (principal); I50.32 Chronic diastolic (congestive) heart failure; J45.41 Moderate persistent asthma with (acute) exacerbation; E11.42 Type 2 diabetes mellitus with diabetic polyneuropathy; E11.51 Type 2 diabetes mellitus with diabetic peripheral angiopathy without gangrene; I11.0 Hypertensive heart disease with heart failure; E11.65 Type 2 diabetes mellitus with hyperglycemia; S00.03XA Contusion of scalp, initial encounter; Z79.4 Long term (current) use of insulin; Z23 Encounter for immunization; I25.10 Atherosclerotic heart disease of native coronary artery without angina pectoris; M06.9 Rheumatoid arthritis, unspecified; M19.90 Unspecified osteoarthritis, unspecified site; E78.00 Pure hypercholesterolemia, unspecified; E78.5 Hyperlipidemia, unspecified; Z68.41 Body mass index [BMI] 40.0-44.9, adult; E66.9 Obesity, unspecified; W01.0XXA Fall on same level from slipping, tripping and stumbling without subsequent striking against object, initial encounter; Y92.009 Unspecified place in unspecified non-institutional (private) residence as the place of occurrence of the external cause

== ENCOUNTER 2019-03-08 13:45 | Inpatient (IN) | payer MEDICAID ==
[2019-03-08 13:56] VITALS: BMI 40.4
[2019-03-08] MEDS ORDERED: Albuterol-Ipratrop 3 mg / 0.5 (3 ml) UD INH STA ×2 (14:34→15:36)
--- NOTE | 2019-03-08 14:34 | ED PDOC ---
HPI: SOB/CHF/COPD Time Seen by Provider: 03/08/19 13:59 Chief Complaint (Nursing): Shortness Of Breath Chief Complaint (Provider): Shortness Of Breath History Per: Patient, Timber Deadener (Vignesh Martell # [id number]) History/Exam Limitations: language barrier Onset/Duration Of Symptoms: Days (x2) Current Symptoms Are (Timing): Still Present Additional Complaint(s): Patient is a 58 y/o female with an extensive PMHx who presents to the ED for evaluation of shortness of breath with asthma exacerbation and chest pain for the past two days. Patient also complains of bilateral leg swelling and cough productive of clear sputum. Patient denies fever. PCP: Dr. Kyra Palafox Past Medical History Reviewed: Historical Data, Nursing Documentation, Vital Signs Vital Signs: Last Vital Signs Temp 98.6 F 03/08/19 14:05 Pulse 98 H 03/08/19 14:05 Resp 22 03/08/19 14:05 BP 110/65 03/08/19 14:05 Pulse Ox 99 03/08/19 14:05 Primary Care Provider: Kyra Palafox - Medical History PMH: Arthritis, Asthma, CAD, CHF, Diabetes, HTN, Hypercholesterolemia Denies: Chronic Kidney Disease - Surgical History Surgical History: No Surg Hx - Family History Family History: States: No Known Family Hx - Home Medications Home Medications: Ambulatory Orders Medication Instructions Recorded Abatacept [Orencia] 125 mg SC MIDNIGHT 01/14/19 Albuterol Sulfate [Ventolin Hfa] 2 puff IH Q6 PRN 01/14/19 Albuterol/Ipratropium [Duoneb 3 3 ml IH Q6 PRN 01/14/19 mg/0.5 mg (3 ml) UD] Aspirin [Ecotrin] 81 mg PO DAILY 01/14/19 Fluticasone Nasal [Flonase] 2 spray BRIDGETT 01/14/19 Fluticasone/Vilanterol [Breo 1 puff IH DAILY 01/14/19 Ellipta 200-25 Mcg INH] Folic Acid 1 mg PO DAILY 01/14/19 Furosemide [Lasix] 20 mg PO DAILY 01/14/19 Gabapentin [Neurontin] 300 mg PO Q8 01/14/19 Insulin Glargine,Hum.rec.anlog 45 unit [facility] 01/14/19 [Basaglar Kwikpen U-100] Losartan [Cozaar] 100 mg PO DAILY 01/14/19 Methotrexate 7.5 mg PO TU 01/14/19 Montelukast [Singulair] 10 mg PO HS 01/14/19 Omeprazole 40 mg PO DAILY 01/14/19 Simvastatin [Zocor] 40 mg PO HS 01/14/19 Tiotropium [Spiriva] 18 mcg PO DAILY 01/14/19 - Allergies Allergies/Adverse Reactions: Allergies Allergy/AdvReac Type Severity Reaction Status Date / Time No Known Allergies Allergy Verified 01/14/19 11:03 Review of Systems ROS Statement: Except As Marked, All Systems Reviewed And Found Negative Constitutional: Negative for: Fever Cardiovascular: Positive for: Chest Pain Respiratory: Positive for: Cough, Shortness of Breath, Sputum (clear) Musculoskeletal: Positive for: Other (leg swelling) Physical Exam - Reviewed Nursing Documentation Reviewed: Yes Vital Signs Reviewed: Yes - Physical Exam Appears: Positive for: No Acute Distress Head Exam: Positive for: ATRAUMATIC, NORMAL INSPECTION, NORMOCEPHALIC Skin: Positive for: Normal Color, Warm Eye Exam: Positive for: EOMI, Normal appearance, PERRL Neck: Positive for: Normal, Painless ROM, Supple Cardiovascular/Chest: Positive for: Regular Rate, Rhythm. Negative for: Murmur Respiratory: Positive for: Wheezing. Negative for: Respiratory Distress Gastrointestinal/Abdominal: Positive for: Normal Exam (belly benign), Soft. Negative for: Tenderness Back: Positive for: Normal Inspection. Negative for: L CVA Tenderness, R CVA Tenderness Extremity: Positive for: Normal ROM, Pedal Edema (+2). Negative for: Deformity Neurological/Psych: Positive for: Alert, Oriented (x3), Other (speaking full sentences) - Laboratory Results Result Diagrams: 03/09/19 05:17 03/08/19 16:20 - ECG Interpretation Of ECG: ST @ 104, nonspecific T wave abnormality. O2 Sat by Pulse Oximetry: 99 (RA) Pulse Ox Interpretation: Normal - Radiology X-Ray: Interpreted by Mi X-Ray Interpretation: No Acute Disease - Progress Condition: Improving,but remains with symptoms Medical Decision Making Medical Decision Making: Time: 1431 Impression: Shortness of Breath Plan: EKG ProBNP Troponin I Urine Dipstick CBC PTT Prothrombin Time CXR Duoneb 3 ml INH SOLU-Medrol 125 mg IVP Glucose, Blood, POC Peak Flow Pre/Post TX UA Scribe Attestation: Documented by Osmel Felix, acting as a scribe Bobby Sullivan MD Provider Scribe Attestation: All medical record entries made by the Scribe were at my direction and personally dictated by me. I have reviewed the chart and agree that the record accurately reflects my personal performance of the history, physical exam, medical decision making, and the department course for this patient. I have also personally directed, reviewed, and agree with the discharge instructions and disposition. Disposition - Clinical Impression Clinical Impression: Asthma exacerbation, Chest pain - Patient ED Disposition Is Patient to be Admitted: Yes - Disposition Disposition Time: 16:33 Condition: STABLE - Pt Status Changed To: Hospital Disposition Of: Inpatient - Admit Certification Admit to Inpatient:: After my assessment, the patient will require hospitalization for at least two midnights. This is because of the severity of symptoms shown, intensity of services needed, and/or the medical risk in this patient being treated as an outpatient. - POA Present On Arrival: None
[2019-03-08] MEDS ORDERED: Albuterol-Ipratrop 3 mg / 0.5 (3 ml) UD ONE ×2 (14:40→16:30)
[2019-03-08 14:58] LABS: BASO # 0.1 K/uL (0.0-0.2); BASO % 0.7 % (0.0-2.0); EOS # 0.2 K/uL (0.0-0.7); EOS % 1.6 % (0.0-4.0); HEMOGLOBIN 10.9 g/dL (12.0-16.0); LYMPH # 2.5 K/uL (1.0-4.3); LYMPH % 24.9 % (20.0-40.0); MEAN CELL VOLUME 88.6 fl (81.0-99.0); MEAN CORPUSCULAR HEMOGLOBIN 28.9 pg (27.0-31.0); MEAN CORPUSCULAR HGB CONC 32.6 g/dL (33.0-37.0); MEAN PLATELET VOLUME 8.3 fl (7.2-11.7); MONO # 0.6 K/uL (0.0-0.8); MONO % 6.2 % (0.0-10.0); NEUT # 6.7 K/uL (1.8-7.0); NEUT % 66.6 % (50.0-75.0); NRBC % 0.1 % (0.0-0.0); RBC 3.78 Mil/uL (3.80-5.20); RED CELL DISTRIBUTION WIDTH 15.5 % (11.5-14.5)
[2019-03-08 15:10] LABS: PROTHROMBIN TIME 11.6 Seconds (9.8-13.1)
[2019-03-08 15:13] LABS: PARTIAL THROMBOPLASTIN TIME 32.4 Seconds (25.6-37.1)
[2019-03-08 15:26] LABS: TROPONIN I 0.013 ng/mL (0.00-0.120)
[2019-03-08 15:38] LABS: SQUAMOUS EPITHIAL 6 /hpf (0-5); URINE BILIRUBIN NEGATIVE (NEGATIVE); URINE BLOOD NEGATIVE (NEGATIVE); URINE CLARITY SLIGHTY-CLOUDY (Clear); URINE COLOR YELLOW (YELLOW); URINE GLUCOSE (UA) NEG (NEGATIVE); URINE LEUKOCYTE ESTERASE TRACE Leu/uL (Negative); URINE PROTEIN NEGATIVE (NEGATIVE); URINE UROBILINOGEN 0.2-1.0 mg/dL (0.2-1.0)
--- NOTE | 2019-03-08 17:05 | RAD ---
Date of service: 03/08/2019 HISTORY: SOB COMPARISON: Portable chest 01/16/2019. TECHNIQUE: 1 view obtained. FINDINGS: LUNGS: No active pulmonary disease. PLEURA: No significant pleural effusion identified, no pneumothorax apparent. CARDIOVASCULAR: Calcific atherosclerotic changes are seen related to the thoracic aorta. Stable cardiomegaly. Mild to moderate pulmonary vascular congestion suggested. OSSEOUS STRUCTURES: No significant abnormalities. VISUALIZED UPPER ABDOMEN: Normal. OTHER FINDINGS: None. IMPRESSION: Interval [id number] pulmonary vascular congestion present. Stable cardiomegaly. No acute pulmonary disease in the interval.
[2019-03-08 17:17] LABS: ALB/GLOB RATIO 1.6 (1.0-2.1); ALT/SGPT 53 U/L (9-52); AST/SGOT 45 U/L (14-36); BLOOD UREA NITROGEN 9 mg/dl (7-17); CALCIUM 8.9 mg/dL (8.4-10.2); GFR NON-AFRICAN AMERICAN > 60
[2019-03-08] MEDS ORDERED: Albuterol-Ipratrop 3 mg / 0.5 (3 ml) UD IH PRN ×2 (19:00→19:30)
[2019-03-08] MEDS ORDERED: Levalbuterol 1.25 MG/3 ML Inhal Soln UD INH PRN (22:00)
[2019-03-08] MEDS ORDERED: Insulin Detemir 100 Units/ml Inj SC SCH (22:00)
[2019-03-09] MEDS: Albuterol HFA 90 mcg/actuation (8 g) IH PRN (00:30)
[2019-03-09] MEDS ORDERED: methylPREDNISolone 125 MG in Sodium Chloride 0.9% 50 ML IV SCH (01:00)
[2019-03-09 07:00] LABS: BASO % 0.1 % (0.0-2.0); HEMOGLOBIN 10.9 g/dL (12.0-16.0); LYMPH # 0.9 K/uL (1.0-4.3); LYMPH % 9.8 % (20.0-40.0); MEAN CELL VOLUME 88.8 fl (81.0-99.0); MEAN CORPUSCULAR HEMOGLOBIN 28.5 pg (27.0-31.0); MEAN CORPUSCULAR HGB CONC 32.1 g/dL (33.0-37.0); MEAN PLATELET VOLUME 8.6 fl (7.2-11.7); MONO # 0.1 K/uL (0.0-0.8); MONO % 1.1 % (0.0-10.0); NEUT # 7.8 K/uL (1.8-7.0); NRBC % 0.1 % (0.0-0.0); PLATELET COUNT 241 K/uL (130-400); RBC 3.82 Mil/uL (3.80-5.20); RED CELL DISTRIBUTION WIDTH 15.7 % (11.5-14.5); WHITE BLOOD COUNT 8.8 K/uL (4.8-10.8)
[2019-03-09] MEDS: Pantoprazole 40 mg EC Tab PO SCH (08:36)
[2019-03-09] MEDS: FLUTICASONE PROPION/SALMETEROL 113-14 IH SCH ×2 (08:37→17:12)
[2019-03-09] MEDS: Tiotropium 18 mcg Cap For Inhalation INH SCH (08:38)
[2019-03-09] MEDS ORDERED: ABATACEPT 125 MG SC SCH (09:00)
[2019-03-09 10:48] LABS: ANISOCYTOSIS SLIGHT; GIANT PLATELETS PRESENT; HYPOCHROMIC SLIGHT; LYMPHOCYTE 11 % (20-50); MONOCYTE 1 % (0-10); NEUTROPHIL 88 % (42-75); PLATELET ESTIMATE NORMAL (NORMAL); TOTAL CELLS COUNTED 100
[2019-03-09] MEDS ORDERED: Insulin Regular 100 units/ml SC STA (11:16)
--- NOTE | 2019-03-09 11:27 | CARD ---
APPROVED REPORT Date of service: 03/08/2019 EKG Measurement Heart [id number] <Conclusion> Sinus tachycardia Possible Left atrial enlargement Nonspecific T wave abnormality Abnormal ECG
--- NOTE | 2019-03-09 11:50 | CP.PCM.HP ---
History of Present Illness - History of Present Illness History of Present Illness: This is a 58 y/o female admitted for asthma exacerbation. Past Patient History - Infectious Disease Hx of Infectious Diseases: None - Tetanus Immunizations Tetanus Immunization: Unknown - Past Medical History & Family History Past Medical History?: Yes - Past Social History Smoking Status: Never Smoked - CARDIAC Hx Cardiac Disorders: No Hx Angina: No Hx Atrial Fibrillation: No Hx Cardia Arrhythmia: No Hx Circulatory Problems: No Hx Congestive Heart Failure: Yes Hx Heart Attack: No Hx Heart Murmur: No Hx Heart Transplant: No Hx Hypercholesterolemia: No Hx Hypertension: No Hx Hypotension: No Hx Internal Defibrillator: No Hx Mitral Valve Prolapse: No Hx Pacemaker: No Hx Peripheral Edema: No Hx Peripheral Vascular Disease: No - PULMONARY Hx Respiratory Disorders: No Hx Asthma: Yes Hx Bronchitis: Yes Hx Chronic Obstructive Pulmonary Disease (COPD): No Hx Emphysema: No Hx Lung Cancer: No Hx Pneumonia: No Hx Pulmonary Edema: No Hx Pulmonary Embolism: No Hx Respiratory Aspiration: No Hx Respiratory Tract Infection: No Hx Sleep Apnea: No Hx Tuberculosis: No - NEUROLOGICAL Hx Neurological Disorder: No Hx Alzheimer's Disease: No HX Cerebrovascular Accident: No Hx Dementia: No Hx Dizziness: No Hx Meningitis: No Hx Migraine: No Hx Multiple Sclerosis: No Hx Paralysis: No Hx Parkinson's Disease: No Hx Seizures: No Hx Syncope: No Hx Transient Ischemic Attacks (TIA): No Hx Vertigo: No Other/Comment: frequent h/a but never diagnosed with migraines - HEENT Hx HEENT Problems: No Hx Blind: No Hx Cataracts: No Hx Deafness: No Hx Difficulty Chewing: No Hx Epistaxis: No Hx Glaucoma: No Hx Macular Degeneration: No Hx Sinusitis: No - RENAL Hx Chronic Kidney Disease: No Hx Dialysis: No Hx Kidney Stones: No Hx Neurogenic Bladder: No Hx Pyelonephritis: No Hx Renal (Kidney) Cancer: No Hx Renal Failure: No - ENDOCRINE/METABOLIC Hx Endocrine Disorders: No Hx Adrenal Cancer: No Hx Diabetes Insipidus: No Hx Diabetes Mellitus Type 1: No Hx Diabetes Mellitus Type 2: No Hx Hyperthyroidism: No Hx Hypothyroidism: No Hx Systemic Lupus Erythematosus: No - HEMATOLOGICAL/ONCOLOGICAL Hx Blood Disorders: No Hx AIDS: No Hx Anemia: No Hx Blood Transfusions: No Hx Blood Transfusion Reaction: No Hx Bruising: No Hx Cancer: No Hx Chemotherapy: No Hx Cirrhosis: No Hx Gum Bleeding: No Hx Hemophilia: No Hx Hepatitis A: No Hx Hepatitis B: No Hx Hepatitis C: No Hx Human Immunodeficiency Virus (HIV): No Hx Leukemia: No Hx Metastesis: No Hx Shingles: No Hx Sickle Cell Disease: No Hx Unexplained Bleeding: No Hx von Willebrand's Disease: No - INTEGUMENTARY Hx Dermatological Problems: No Hx Basil Cell: No Hx Herbert: No Hx Cellulitis: No Hx Eczema: No Hx Melanoma: No Hx Psoriasis: No Hx Squamous Cell: No - MUSCULOSKELETAL/RHEUMATOLOGICAL Hx Musculoskeletal Disorders: No Hx Arthritis: Yes Hx Back Pain: No Hx Degenerative Joint Disease: No Hx Falls: No Hx Fractures: No Hx Gout: No Hx Herniated Disk: No Hx Myasthenia Gravis: No Hx Osteoarthritis: No Hx Osteomyelitis: No Hx Osteoporosis: No Hx Rhabdomyolysis: No Hx Rheumatoid Arthritis: No Hx Spinal Stenosis: No Hx Unsteady Gait: No - GASTROINTESTINAL Hx Gastrointestinal Disorders: No Hx Bowel Surgery: No Hx Clostridium Difficile: No Hx Colitis: No Hx Colostomy: No Hx Constipation: No Hx Crohn's Disease: No Hx Diarrhea: No Hx Diverticulitis: No Hx Esophageal Varices: No Hx Fatty Liver Disease: No Hx Gall Bladder Disease: No Hx Gastritis: No Hx Gastroesophageal Reflux: No Hx Hemorrhoids: No Hx Ileostomy: No Hx Irritable Bowel: No Hx Liver Failure: No Hx Nausea: No Hx Pancreatitis: No HX Swallowing Problems: No Hx Ulcer: No Hx Vomiting: No - GENITOURINARY/GYNECOLOGICAL Hx Genitourinary Disorders: No Hx Bladder Cancer: No Hx Bladder Stone: No Hx Cervical Cancer: No Hx Hematuria: No Hx Incontinence: No Hx Ovarian Cancer: No Hx Postmenopausal Bleeding: No Hx Reproductive Disorders: No Hx Sexually Transmitted Disorders: No Hx Uterine Cancer: No Hx Urinary Tract Infection: No - PSYCHIATRIC Hx Psychophysiologic Disorder: No Hx Anxiety: No Hx Bipolar Disorder: No Hx Depression: No Hx Emotional Abuse: No Hx Hallucinations: No Hx Panic Symptoms: No Hx Paranoia: No Hx Post Traumatic Stress Disorder: No Hx Psychosis: No Hx Physical Abuse: No Hx Schizophrenia: No Hx Sexual Abuse: No Hx Substance Use: No - SURGICAL HISTORY Hx Surgeries: Yes Other/Comment: Two hip surgeries, 3 c-sections, spine surgery in lumbar - ANESTHESIA Hx Anesthesia: Yes Hx Anesthesia Reactions: No Meds Allergies/Adverse Reactions: Allergies Allergy/AdvReac Type Severity Reaction Status Date / Time No Known Allergies Allergy Verified 01/14/19 11:03 Results - Vital Signs Recent Vital Signs: Last Vital Signs Temp 97.9 F 03/09/19 08:24 Pulse 103 H 03/09/19 08:37 Resp 20 03/09/19 08:24 BP 118/73 03/09/19 08:37 Pulse Ox 98 03/09/19 08:24 - Labs Result Diagrams: 03/09/19 05:17 03/08/19 16:20 Labs: Laboratory Results - last 24 hr 03/08/19 03/08/19 03/08/19 14:40 14:40 14:40 WBC 10.0 RBC 3.78 L Hgb 10.9 L Hct 33.5 L MCV 88.6 D MCH 28.9 MCHC 32.6 L RDW 15.5 H Plt Count 251 MPV 8.3 Neut % (Auto) 66.6 Lymph % (Auto) 24.9 Stewart % (Auto) 6.2 Eos % (Auto) 1.6 Baso % (Auto) 0.7 Neut # (Auto) 6.7 Lymph # (Auto) 2.5 Stewart # (Auto) 0.6 Eos # (Auto) 0.2 Baso # (Auto) 0.1 Neutrophils % (Manual) Lymphocytes % (Manual) Monocytes % (Manual) Platelet Estimate Giant Platelets Hypochromasia (manual) Anisocytosis (manual) PT 11.6 INR 1.0 APTT 32.4 Sodium Potassium Chloride Carbon Dioxide Anion Gap BUN Creatinine Est GFR ( Amer) Est GFR (Non-Af Amer) POC Glucose (mg/dL) Random Glucose Calcium Total Bilirubin AST ALT Alkaline Phosphatase Troponin I 0.0130 NT-Pro-B Natriuret Pep 787 Total Protein Albumin Globulin Albumin/Globulin Ratio Triglycerides Cholesterol LDL Cholesterol Direct HDL Cholesterol TSH 3rd Generation Urine Color Urine Clarity Urine pH Ur Specific [place] Urine Protein Urine Glucose (UA) Urine Ketones Urine Blood Urine Nitrate Urine Bilirubin Urine Urobilinogen Ur Leukocyte Esterase Urine RBC (Auto) Urine Microscopic WBC Ur Squamous Epith Cells 03/08/19 03/08/19 03/08/19 14:50 14:56 16:20 WBC RBC Hgb Hct MCV MCH MCHC RDW Plt Count MPV Neut % (Auto) Lymph % (Auto) Stewart % (Auto) Eos % (Auto) Baso % (Auto) Neut # (Auto) Lymph # (Auto) Stewart # (Auto) Eos # (Auto) Baso # (Auto) Neutrophils % (Manual) Lymphocytes % (Manual) Monocytes % (Manual) Platelet Estimate Giant Platelets Hypochromasia (manual) Anisocytosis (manual) PT INR APTT Sodium 138 Potassium 4.4 Chloride 104 Carbon Dioxide 28 Anion Gap 10 BUN 9 Creatinine 0.6 L Est GFR ( Amer) > 60 Est GFR (Non-Af Amer) > 60 POC Glucose (mg/dL) 89 Random Glucose 76 Calcium 8.9 Total Bilirubin 0.5 AST 45 H D ALT 53 H Alkaline Phosphatase 69 Troponin I NT-Pro-B Natriuret Pep Total Protein 6.6 Albumin 4.0 Globulin 2.5 Albumin/Globulin Ratio 1.6 Triglycerides Cholesterol LDL Cholesterol Direct HDL Cholesterol TSH 3rd Generation Urine Color Yellow Urine Clarity Slighty-cloudy Urine pH 8.0 Ur Specific [place] 1.017 Urine Protein Negative Urine Glucose (UA) Neg Urine Ketones Negative Urine Blood Negative Urine Nitrate Negative Urine Bilirubin Negative Urine Urobilinogen 0.2-1.0 Ur Leukocyte Esterase Trace Urine RBC (Auto) 2 Urine Microscopic WBC 2 Ur Squamous Epith Cells 6 H 03/08/19 03/08/19 03/09/19 19:57 21:36 05:17 WBC 8.8 RBC 3.82 Hgb 10.9 L Hct 34.0 MCV 88.8 MCH 28.5 MCHC 32.1 L RDW 15.7 H Plt Count 241 MPV 8.6 Neut % (Auto) 89.0 H Lymph % (Auto) 9.8 L Stewart % (Auto) 1.1 Eos % (Auto) 0.0 Baso % (Auto) 0.1 Neut # (Auto) 7.8 H Lymph # (Auto) 0.9 L Stewart # (Auto) 0.1 Eos # (Auto) 0.0 Baso # (Auto) 0.0 Neutrophils % (Manual) 88 H Lymphocytes % (Manual) 11 L Monocytes % (Manual) 1 Platelet Estimate Normal Giant Platelets Present Hypochromasia (manual) Slight Anisocytosis (manual) Slight PT INR APTT Sodium Potassium Chloride Carbon Dioxide Anion Gap BUN Creatinine Est GFR ( Amer) Est GFR (Non-Af Amer) POC Glucose (mg/dL) 319 H Random Glucose Calcium Total Bilirubin AST ALT Alkaline Phosphatase Troponin I < 0.0120 NT-Pro-B Natriuret Pep Total Protein Albumin Globulin Albumin/Globulin Ratio Triglycerides Cholesterol LDL Cholesterol Direct HDL Cholesterol TSH 3rd Generation Urine Color Urine Clarity Urine pH Ur Specific [place] Urine Protein Urine Glucose (UA) Urine Ketones Urine Blood Urine Nitrate Urine Bilirubin Urine Urobilinogen Ur Leukocyte Esterase Urine RBC (Auto) Urine Microscopic WBC Ur Squamous Epith Cells 03/09/19 03/09/19 03/09/19 05:17 06:08 11:04 WBC RBC Hgb Hct MCV MCH MCHC RDW Plt Count MPV Neut % (Auto) Lymph % (Auto) Stewart % (Auto) Eos % (Auto) Baso % (Auto) Neut # (Auto) Lymph # (Auto) Stewart # (Auto) Eos # (Auto) Baso # (Auto) Neutrophils % (Manual) Lymphocytes % (Manual) Monocytes % (Manual) Platelet Estimate Giant Platelets Hypochromasia (manual) Anisocytosis (manual) PT INR APTT Sodium Potassium Chloride Carbon Dioxide Anion Gap BUN Creatinine Est GFR ( Amer) Est GFR (Non-Af Amer) POC Glucose (mg/dL) 302 H 443 H* Random Glucose Calcium Total Bilirubin AST ALT Alkaline Phosphatase Troponin I NT-Pro-B Natriuret Pep Total Protein Albumin Globulin Albumin/Globulin Ratio Triglycerides 80 Cholesterol 181 LDL Cholesterol Direct 125 HDL Cholesterol 45 TSH 3rd Generation 0.50 Urine Color Urine Clarity Urine pH Ur Specific [place] Urine Protein Urine Glucose (UA) Urine Ketones Urine Blood Urine Nitrate Urine Bilirubin Urine Urobilinogen Ur Leukocyte Esterase Urine RBC (Auto) Urine Microscopic WBC Ur Squamous Epith Cells
[2019-03-09] MEDS ORDERED: methylPREDNISolone 40 MG in Sodium Chloride 0.9% 50 ML IV SCH (12:00)
[2019-03-09] MEDS: MethylPREDNISolone 40 mg Vial IVP SCH ×2 (12:11→21:29)
[2019-03-09] MEDS: Insulin Lispro (humaLOG) 100 Units/ml Inj SC SCH ×2 (17:10→21:33)
[2019-03-10] MEDS: MethylPREDNISolone 40 mg Vial IVP SCH ×2 (04:21→12:15)
[2019-03-10 04:36] VITALS: RESP 20
[2019-03-10] MEDS: Insulin Lispro (humaLOG) 100 Units/ml Inj SC SCH ×2 (07:54→12:14)
[2019-03-10] MEDS: Albuterol HFA 90 mcg/actuation (8 g) IH PRN (07:58)
[2019-03-10] MEDS: Pantoprazole 40 mg EC Tab PO SCH (09:04)
[2019-03-10] MEDS: FLUTICASONE PROPION/SALMETEROL 113-14 IH SCH (09:05)
[2019-03-10] MEDS: Tiotropium 18 mcg Cap For Inhalation INH SCH (09:07)
--- NOTE | 2019-03-10 11:05 | CP.PCM.DIS ---
Provider - Provider Date of Admission: 03/08/19 16:31 Attending physician: Jose Stanley MD Hospital Course - Lab Results Lab Results: Most Recent Lab Values WBC 8.8 K/uL (4.8-10.8) 03/09/19 05:17 RBC 3.82 Mil/uL (3.80-5.20) 03/09/19 05:17 Hgb 10.9 g/dL (12.0-16.0) L 03/09/19 05:17 Hct 34.0 % (34.0-47.0) 03/09/19 05:17 MCV 88.8 fl (81.0-99.0) 03/09/19 05:17 MCH 28.5 pg (27.0-31.0) 03/09/19 05:17 MCHC 32.1 g/dL (33.0-37.0) L 03/09/19 05:17 RDW 15.7 % (11.5-14.5) H 03/09/19 05:17 Plt Count 241 K/uL (130-400) 03/09/19 05:17 MPV 8.6 fl (7.2-11.7) 03/09/19 05:17 Neut % (Auto) 89.0 % (50.0-75.0) H 03/09/19 05:17 Lymph % (Auto) 9.8 % (20.0-40.0) L 03/09/19 05:17 Coleman % (Auto) 1.1 % (0.0-10.0) 03/09/19 05:17 Eos % (Auto) 0.0 % (0.0-4.0) 03/09/19 05:17 Baso % (Auto) 0.1 % (0.0-2.0) 03/09/19 05:17 Neut # (Auto) 7.8 K/uL (1.8-7.0) H 03/09/19 05:17 Lymph # (Auto) 0.9 K/uL (1.0-4.3) L 03/09/19 05:17 Coleman # (Auto) 0.1 K/uL (0.0-0.8) 03/09/19 05:17 Eos # (Auto) 0.0 K/uL (0.0-0.7) 03/09/19 05:17 Baso # (Auto) 0.0 K/uL (0.0-0.2) 03/09/19 05:17 Neutrophils % (Manual) 88 % (42-75) H 03/09/19 05:17 Lymphocytes % (Manual) 11 % (20-50) L 03/09/19 05:17 Monocytes % (Manual) 1 % (0-10) 03/09/19 05:17 Platelet Estimate Normal (NORMAL) 03/09/19 05:17 Giant Platelets Present 03/09/19 05:17 Hypochromasia (manual) Slight 03/09/19 05:17 Anisocytosis (manual) Slight 03/09/19 05:17 PT 11.6 Seconds (9.8-13.1) 03/08/19 14:40 INR 1.0 03/08/19 14:40 APTT 32.4 Seconds (25.6-37.1) 03/08/19 14:40 Sodium 138 mmol/l (132-148) 03/08/19 16:20 Potassium 4.4 MMOL/L (3.6-5.0) 03/08/19 16:20 Chloride 104 mmol/L (98-107) 03/08/19 16:20 Carbon Dioxide 28 mmol/L (22-30) 03/08/19 16:20 Anion Gap 10 (10-20) 03/08/19 16:20 BUN 9 mg/dl (7-17) 03/08/19 16:20 Creatinine 0.6 mg/dl (0.7-1.2) L 03/08/19 16:20 Est GFR ( Amer) > 60 03/08/19 16:20 Est GFR (Non-Af Amer) > 60 03/08/19 16:20 POC Glucose (mg/dL) 353 mg/dL (65-110) H 03/10/19 06:42 Random Glucose 76 mg/dL (65-105) 03/08/19 16:20 Hemoglobin A1c 7.9 % (4.2-6.5) H 03/09/19 05:17 Calcium 8.9 mg/dL (8.4-10.2) 03/08/19 16:20 Total Bilirubin 0.5 mg/dl (0.2-1.3) 03/08/19 16:20 AST 45 U/L (14-36) H D 03/08/19 16:20 ALT 53 U/L (9-52) H 03/08/19 16:20 Alkaline Phosphatase 69 U/L (38-126) 03/08/19 16:20 Troponin I < 0.0120 ng/mL (0.00-0.120) 03/08/19 19:57 NT-Pro-B Natriuret Pep 787 pg/ml (0-900) 03/08/19 14:40 Total Protein 6.6 G/DL (6.3-8.2) 03/08/19 16:20 Albumin 4.0 g/dL (3.5-5.0) 03/08/19 16:20 Globulin 2.5 gm/dL (2.2-3.9) 03/08/19 16:20 Albumin/Globulin Ratio 1.6 (1.0-2.1) 03/08/19 16:20 Triglycerides 80 mg/DL (0-149) 03/09/19 05:17 Cholesterol 181 mg/dL (0-199) 03/09/19 05:17 LDL Cholesterol Direct 125 mg/dL (0-129) 03/09/19 05:17 HDL Cholesterol 45 MG/DL (30-70) 03/09/19 05:17 TSH 3rd Generation 0.50 mIU/ML (0.46-4.68) 03/09/19 05:17 Urine Color Yellow (YELLOW) 03/08/19 14:56 Urine Clarity Slighty-cloudy (Clear) 03/08/19 14:56 Urine pH 8.0 (5.0-8.0) 03/08/19 14:56 Ur Specific [place] 1.017 (1.003-1.030) 03/08/19 14:56 Urine Protein Negative mg/dL (NEGATIVE) 03/08/19 14:56 Urine Glucose (UA) Neg mg/dL (NEGATIVE) 03/08/19 14:56 Urine Ketones Negative mg/dL (NEGATIVE) 03/08/19 14:56 Urine Blood Negative (NEGATIVE) 03/08/19 14:56 Urine Nitrate Negative (NEGATIVE) 03/08/19 14:56 Urine Bilirubin Negative (NEGATIVE) 03/08/19 14:56 Urine Urobilinogen 0.2-1.0 mg/dL (0.2-1.0) 03/08/19 14:56 Ur Leukocyte Esterase Trace Suzette/uL (Negative) 03/08/19 14:56 Urine RBC (Auto) 2 /hpf (0-3) 03/08/19 14:56 Urine Microscopic WBC 2 /hpf (0-5) 03/08/19 14:56 Ur Squamous Epith Cells 6 /hpf (0-5) H 03/08/19 14:56 - Hospital Course Hospital Course: This is a 58 y/o female admitted for asthma exacerbation. Discharge Exam - Head Exam Head Exam: ATRAUMATIC, NORMAL INSPECTION, NORMOCEPHALIC Discharge Plan - Follow Up Plan Condition: STABLE Disposition: HOME/ ROUTINE
[2019-03-10 12:42] VITALS: BP 131/73; PULSE 90; TEMP 97.9; O2SAT 95
--- NOTE | 2019-03-10 17:53 | CARD ---
APPROVED REPORT Date of service: 03/08/2019 EKG Measurement Heart [id number] <Conclusion> Sinus tachycardia Possible Left atrial enlargement Nonspecific T wave abnormality Abnormal ECG
== END 2019-03-10 13:55 | disposition home or self-care (01) | DRG 96 ==
LOC: H.ER 13:45 → H.ERHOLD 16:31 → H.TEL 17:36
PROVIDERS: ADMIT Family Medicine; ATTEND Family Medicine
DX: J45.901 Unspecified asthma with (acute) exacerbation (principal); I11.0 Hypertensive heart disease with heart failure; I50.9 Heart failure, unspecified; I25.10 Atherosclerotic heart disease of native coronary artery without angina pectoris; E11.9 Type 2 diabetes mellitus without complications; E78.00 Pure hypercholesterolemia, unspecified; Z79.82 Long term (current) use of aspirin